=== PATIENT | female | born 1955 | race American Indian/Alaskan Native ===

== ENCOUNTER 2017-09-17 21:13 | Emergency (ER) | payer OTHER ==
--- NOTE | 2017-09-17 21:40 | EDM.PDOC ---
ED HPI GENERAL MEDICAL PROBLEM - General Chief Complaint: Lower Extremity Injury/Pain Stated Complaint: PT FELL AND HURT LT KNEE Time Seen by Provider: 09/17/17 21:40 Source of Information: Reports: Patient - History of Present Illness INITIAL COMMENTS - FREE TEXT/NARRATIVE: HISTORY AND PHYSICAL: History of present illness: [Patient with history of bilateral total knee replacement presents post fall, she slipped on the sidewalk down to her left knee complains of 10 out of 10 pain with ambulation unable to bear weight due to pain otherwise limits neurovascularly intact there's moderate swelling about the knee no open lesion or abrasion no bruising entirely neurovascularly intact ] Review of systems: As per history of present illness and below otherwise all systems reviewed and negative. Past medical history: As per history of present illness and as reviewed below otherwise noncontributory. Surgical history: As per history of present illness and as reviewed below otherwise noncontributory. Social history: No reported history of drug or alcohol abuse. Family history: As per history of present illness and as reviewed below otherwise noncontributory. Physical exam: HEENT: Atraumatic, normocephalic, pupils reactive, negative for conjunctival pallor or scleral icterus, mucous membranes moist, throat clear, neck supple, nontender, trachea midline. Lungs: Clear to auscultation, breath sounds equal bilaterally, chest nontender. Heart: S1S2, regular, negative for clicks, rubs, or JVD. Abdomen: Soft, nondistended, nontender. Negative for masses or hepatosplenomegaly. Negative for costovertebral tenderness. Pelvis: Stable nontender. Genitourinary: Deferred. Rectal: Deferred. Extremities: Atraumatic, negative for cords or calf pain. Neurovascular unremarkable. Neuro: Awake, alert, oriented. Cranial nerves II through XII unremarkable. Cerebellum unremarkable. Motor and sensory unremarkable throughout. Exam nonfocal. Left lower extremity hip and ankle and affected knee as per history of present illness Diagnostics: [2 views left knee ] Therapeutics: [Percocet Patient has tolerated this medication in the past #10 no refill Crutches as needed] Buster bandage Follow-up with orthop Impression: [Left knee pain/contusion History of total knee replacement Definitive disposition and diagnosis as appropriate pending reevaluation and review of above. left knee Pain Score (Numeric/FACES): 7 - Related Data Allergies Allergy/AdvReac Type Severity Reaction Status Date / Time aspirin Allergy Nausea Verified 06/26/16 18:55 codeine Allergy Hives Verified 09/08/15 10:36 ketorolac [From Toradol] Allergy Nausea Verified 06/26/16 18:55 morphine Allergy Difficulty Verified 09/17/17 21:36 Breathing Penicillins Allergy Hives Verified 09/17/17 21:36 Tricyclic Compounds Allergy Vomiting Verified 09/08/15 10:36 Home Meds: Home Meds Acetaminophen/HYDROcodone [[place] 325-5 MG] 1 tab PO Q6HR PRN 09/17/17 [History] LORazepam 1 tab PO BEDTIME PRN 09/17/17 [History] Lisinopril 1 tab PO DAILY 09/17/17 [History] Triamcinolone Acetonide [Nasacort AQ [place]] 55 mcg INH DAILY 09/17/17 [History] Past Medical History Cardiovascular History: Reports: Hypertension Endocrine/Metabolic History: Reports: Other (See Below) Other Endocrine/Metabolic History: "PREDIABETIC" - Infectious Disease History Infectious Disease History: Reports: Chicken Pox, Measles, Mumps - Past Surgical History Cardiovascular Surgical History: Reports: Other (See Below) Social & Family History - Family History Family Medical History: Noncontributory - Tobacco Use Smoking Status *Q: Never Smoker Second Hand Smoke Exposure: Yes - Caffeine Use Caffeine Use: Reports: Coffee - Recreational Drug Use Recreational Drug Use: No Review of Systems - Review of Systems Review Of Systems: ROS reveals no pertinent complaints other than HPI. ED EXAM, GENERAL - Physical Exam Exam: See Below Course - Vital Signs Last Recorded V/S: Last Vital Signs Temp 97.7 F 09/17/17 21:13 Pulse 83 09/17/17 21:13 Resp 18 09/17/17 21:13 BP 123/51 L 09/17/17 21:13 Pulse Ox 95 09/17/17 21:13 - Orders/Labs/Meds Orders: Active Orders 24 hr Category Date Time Status Knee 1V or 2V Lt [CR] Stat Exams 09/17/17 21:38 Taken Meds: Medications Discontinued Medications Generic Name Dose Route Start Last Admin Trade Name Freq PRN Reason Stop Dose Admin Oxycodone/Acetaminophen 1 tab 09/17/17 22:44 Percocet 325-5 Mg PO 09/17/17 22:45 ONETIME ONE Departure - Departure Time of Disposition: 22:54 Disposition: Home, Self-Care 01 Condition: Good Clinical Impression: Contusion, Left knee pain - Discharge Information Referrals: PCP,None [Primary Care Provider] - Forms: ED Department Discharge Additional Instructions: Medication as prescribed Return if symptoms persist or worsen Follow-up with orthopedist, call for an appointment for appropriate follow-up Crutches when necessary [facility] [address], [address] [place] [address] my orthopedic The following information is given to patients seen in the emergency department who are being discharged to home. This information is to outline your options for follow-up care. We provide all patients seen in our emergency department with a follow-up referral. The need for follow-up, as well as the timing and circumstances, are variable depending upon the specifics of your emergency department visit. If you don't have a primary care physician on staff, we will provide you with a referral. We always advise you to contact your personal physician following an emergency department visit to inform them of the circumstance of the visit and for follow-up with them and/or the need for any referrals to a consulting specialist. The emergency department will also refer you to a specialist when appropriate. This referral assures that you have the opportunity for follow-up care with a specialist. All of these measure are taken in an effort to provide you with optimal care, which includes your follow-up. Under all circumstances we always encourage you to contact your private physician who remains a resource for coordinating your care. When calling for follow-up care, please make the office aware that this follow-up is from your recent emergency room visit. If for any reason you are refused follow-up, please contact the [facility] emergency department at and asked to speak to the emergency department charge nurse. - My Orders Last 24 Hours: My Active Orders 09/17/17 21:38 Knee 1V or 2V Lt [CR] Stat - Assessment/Plan Last 24 Hours: My Active Orders 09/17/17 21:38 Knee 1V or 2V Lt [CR] Stat
[2017-09-17] MEDS ORDERED: Acetaminophen/oxyCODONE 325-5 MG Tab PO ONE (22:44)
[2017-09-17 23:09] VITALS: BP 132/69
--- NOTE | 2017-09-18 15:08 | CR ---
EXAM DATE: 09/17/17 PATIENT'S AGE: 62 Patient: GIRISH KENT Facility: [place], [place] Site . Site : 1955 Study: XRay Knee Left [id number] 10:22:35 PM Ordering Physician: Juan Garcia Final Report: Indication: Pain after fall Technique: Two views left knee Comparison: None Findings/impression: Status post left knee arthroplasty without evidence for hardware complication, fracture, or subluxation. Soft tissues are intact. Dictated by Marianne Martinez MD @ Sep 17 2017 10:49PM (Electronic Signature) Report Signed by Proxy. VALERIE
== END 2017-09-17 23:10 | disposition home or self-care (01) ==
LOC: MW.ED 21:13
DX: S80.02XA Contusion of left knee, initial encounter (principal); I10 Essential (primary) hypertension; Z96.653 Presence of artificial knee joint, bilateral; Z88.6 Allergy status to analgesic agent; Z88.5 Allergy status to narcotic agent; Z88.0 Allergy status to penicillin; Z88.8 Allergy status to other drugs, medicaments and biological substances; W01.0XXA Fall on same level from slipping, tripping and stumbling without subsequent striking against object, initial encounter
CPT/HCPCS: 73560; 99283; A9270

== ENCOUNTER 2018-11-01 05:49 | Emergency (ER) | payer SELFPAY ==
--- NOTE | 2018-11-01 05:52 | EDM.PDOC ---
ED HPI GENERAL MEDICAL PROBLEM - General Stated Complaint: VOMITTING AND ABSCESS TOOTH Time Seen by Provider: 11/01/18 05:52 Source of Information: Reports: Patient - History of Present Illness INITIAL COMMENTS - FREE TEXT/NARRATIVE: HISTORY AND PHYSICAL: History of present illness: [Patient presents with history of dental abscess on Cleocin and Flagyl She's had some nausea and vomiting since midnight nontoxic appearing in no distress no active vomiting at current no current fever chills sweats no chest pain shortness breath headache dizziness palpitation about a urine symptoms ] Review of systems: As per history of present illness and below otherwise all systems reviewed and negative. Past medical history: As per history of present illness and as reviewed below otherwise noncontributory. Surgical history: As per history of present illness and as reviewed below otherwise noncontributory. Social history: No reported history of drug or alcohol abuse. Family history: As per history of present illness and as reviewed below otherwise noncontributory. Physical exam: HEENT: Atraumatic, normocephalic, pupils reactive, negative for conjunctival pallor or scleral icterus, mucous membranes moist, throat clear, neck supple, nontender, trachea midline. Lungs: Clear to auscultation, breath sounds equal bilaterally, chest nontender. Heart: S1S2, regular, negative for clicks, rubs, or JVD. Abdomen: Soft, nondistended, nontender. Negative for masses or hepatosplenomegaly. Negative for costovertebral tenderness. Pelvis: Stable nontender. Genitourinary: Deferred. Rectal: Deferred. Extremities: Atraumatic, negative for cords or calf pain. Neurovascular unremarkable. Neuro: Awake, alert, oriented. Cranial nerves II through XII unremarkable. Cerebellum unremarkable. Motor and sensory unremarkable throughout. Exam nonfocal. Diagnostics: [CBC CMP UA blood cultures ] Therapeutics: [Nucleus and Stop Flagyl ] Impression: [Nausea vomiting/stomach upset Medication side effect due to Flagyl ] Definitive disposition and diagnosis as appropriate pending reevaluation and review of above. - Related Data Allergies Allergy/AdvReac Type Severity Reaction Status Date / Time aspirin Allergy Nausea Verified 11/01/18 06:16 codeine Allergy Hives Verified 11/01/18 06:16 ketorolac [From Toradol] Allergy Nausea Verified 11/01/18 06:16 morphine Allergy Difficulty Verified 11/01/18 06:16 Breathing Penicillins Allergy Hives Verified 11/01/18 06:16 Tricyclic Compounds Allergy Vomiting Verified 11/01/18 06:16 Home Meds: Home Meds Acetaminophen/HYDROcodone [[place] 325-5 MG] 1 tab PO Q6HR PRN 09/17/17 [History] LORazepam 1 tab PO BEDTIME PRN 09/17/17 [History] Lisinopril 1 tab PO DAILY 09/17/17 [History] Triamcinolone Acetonide [Nasacort AQ [place]] 55 mcg INH DAILY 09/17/17 [History] Clindamycin HCl 150 mg PO 11/01/18 [History] metroNIDAZOLE [Metronidazole] 500 mg PO 11/01/18 [History] Past Medical History HEENT History: Reports: Impaired Vision Cardiovascular History: Reports: Hypertension [employer] History: Reports: Psychiatric History: Reports: Anxiety Endocrine/Metabolic History: Reports: Other (See Below) Other Endocrine/Metabolic History: "PREDIABETIC" - Infectious Disease History Infectious Disease History: Reports: Chicken Pox, Measles, Mumps - Past Surgical History Cardiovascular Surgical History: Reports: Other (See Below) Social & Family History - Family History Family Medical History: Noncontributory - Caffeine Use Caffeine Use: Reports: Coffee ED ROS GENERAL - Review of Systems Review Of Systems: See Below ED EXAM, GENERAL - Physical Exam Exam: See Below Course - Vital Signs Last Recorded V/S: Last Vital Signs Temp 97 F 11/01/18 06:18 Pulse 112 H 11/01/18 06:18 Resp 20 11/01/18 06:18 BP 139/70 11/01/18 06:18 Pulse Ox 97 11/01/18 06:18 - Orders/Labs/Meds Orders: Active Orders 24 hr Category Date Time Status CBC WITH AUTO DIFF [HEME] Stat Lab 11/01/18 06:22 Ordered COMPREHENSIVE METABOLIC PN,CMP [CHEM] Stat Lab 11/01/18 06:23 Ordered CULTURE BLOOD [BC] Stat Lab 11/01/18 06:23 Ordered CULTURE BLOOD [BC] Stat Lab 11/01/18 06:23 Ordered UA RFX VI[place]IANO AND CULT IF INDIC [URIN] Stat Lab 11/01/18 06:23 Ordered Sodium Chloride 0.9% [Normal Saline] 1,000 ml Med 11/01/18 06:23 Active IV STAT Blood Culture x2 Reflex Set [OM.PC] Stat Oth 11/01/18 06:23 Ordered Medication Orders Sodium Chloride (Normal Saline) 1,000 mls @ 999 mls/hr IV STAT ONE Stop: 11/01/18 07:23 Meds: Medications Generic Name Dose Route Start Last Admin Trade Name Freq PRN Reason Stop Dose Admin Sodium Chloride 1,000 mls @ 999 mls/hr 11/01/18 06:23 Normal Saline IV 11/01/18 07:23 STAT ONE Discontinued Medications Generic Name Dose Route Start Last Admin Trade Name Freq PRN Reason Stop Dose Admin Ondansetron HCl 8 mg 11/01/18 06:23 Zofran IVPUSH 11/01/18 06:24 ONETIME ONE Departure - Departure Time of Disposition: 06:25 Disposition: Home, Self-Care 01 Condition: Good Clinical Impression: Dental abscess, Nausea & vomiting, Medication side effect - Discharge Information Referrals: Vanessa Yoo MD [Primary Care Provider] - Additional Instructions: Follow-up with dentist as scheduled on Monday Stop Flagyl Continue clindamycin Zofran provided for nausea The following information is given to patients seen in the emergency department who are being discharged to home. This information is to outline your options for follow-up care. We provide all patients seen in our emergency department with a follow-up referral. The need for follow-up, as well as the timing and circumstances, are variable depending upon the specifics of your emergency department visit. If you don't have a primary care physician on staff, we will provide you with a referral. We always advise you to contact your personal physician following an emergency department visit to inform them of the circumstance of the visit and for follow-up with them and/or the need for any referrals to a consulting specialist. The emergency department will also refer you to a specialist when appropriate. This referral assures that you have the opportunity for follow-up care with a specialist. All of these measure are taken in an effort to provide you with optimal care, which includes your follow-up. Under all circumstances we always encourage you to contact your private physician who remains a resource for coordinating your care. When calling for follow-up care, please make the office aware that this follow-up is from your recent emergency room visit. If for any reason you are refused follow-up, please contact the [facility] emergency department at and asked to speak to the emergency department charge nurse. - My Orders Last 24 Hours: My Active Orders 11/01/18 06:22 CBC WITH AUTO DIFF [HEME] Stat 11/01/18 06:23 COMPREHENSIVE METABOLIC PN,CMP [CHEM] Stat CULTURE BLOOD [BC] Stat CULTURE BLOOD [BC] Stat UA RFX VICTORIANO AND CULT IF INDIC [URIN] Stat Sodium Chloride 0.9% [Normal Saline] 1,000 ml IV STAT Blood Culture x2 Reflex Set [OM.PC] Stat - Assessment/Plan Last 24 Hours: My Active Orders 11/01/18 06:22 CBC WITH AUTO DIFF [HEME] Stat 11/01/18 06:23 COMPREHENSIVE METABOLIC PN,CMP [CHEM] Stat CULTURE BLOOD [BC] Stat CULTURE BLOOD [BC] Stat UA RFX VICTORIANO AND CULT IF INDIC [URIN] Stat Sodium Chloride 0.9% [Normal Saline] 1,000 ml IV STAT Blood Culture x2 Reflex Set [OM.PC] Stat
[2018-11-01] MEDS ORDERED: Sodium Chloride 0.9% 1,000 ML IV ONE (06:23)
[2018-11-01] MEDS ORDERED: Ondansetron 4 MG/2 ML SDV IVPUSH ONE (06:23)
[2018-11-01 06:52] LABS: CHLORIDE,CL 100 mmol/L (98-107); SODIUM,NA 136 mmol/L (136-145)
[2018-11-01] MEDS ORDERED: Ketorolac 30 MG/ML SDV IVPUSH ONE (07:33)
[2018-11-01 08:10] VITALS: BP 156/65
== END 2018-11-01 08:02 | disposition home or self-care (01) ==
LOC: MW.ED 05:49
DX: R11.2 Nausea with vomiting, unspecified (principal); T37.3X5A Adverse effect of other antiprotozoal drugs, initial encounter; K04.7 Periapical abscess without sinus; I10 Essential (primary) hypertension; Z88.0 Allergy status to penicillin; Z88.5 Allergy status to narcotic agent; Z88.6 Allergy status to analgesic agent; Z79.899 Other long term (current) drug therapy
CPT/HCPCS: 80053; 85025; 87040; 96361; 96374; 96375; 99284; J1885; J2405; J7040

== ENCOUNTER 2019-10-16 13:07 | Emergency (ER) | payer MEDICARE, OTHER ==
[2019-10-16] MEDS ORDERED: Sodium Chloride 0.9% 2.5 ML Syringe FLUSH PRN ×2 (13:22)
[2019-10-16] MEDS ORDERED: Sodium Chloride 0.9% 10 ML Syringe FLUSH PRN (13:22)
[2019-10-16] MEDS ORDERED: Famotidine 20 MG/2 ML SDV IVPUSH ONE (13:22)
--- NOTE | 2019-10-16 13:31 | EDM.PDOC ---
ED HPI GENERAL MEDICAL PROBLEM - General Chief Complaint: Chest Pain Stated Complaint: CHEST PAIN/SOB Time Seen by Provider: 10/16/19 13:15 - History of Present Illness INITIAL COMMENTS - FREE TEXT/NARRATIVE: History of present illness: [Presents after 4 episodes of sharp chest pain that was episodic lasted seconds took her breath away caused her to stop moving and then resolve spontaneously completely. The pain was in the right side of her chest serially no cough fever congestion runny nose or sore throat she has not had leg pain or leg swelling she has no prior history of heart disease however she does have diabetes and hypertension. Currently pain-free and in no distress seems to make it better or worse or bring on the pain] Review of systems: As per history of present illness and below otherwise all systems reviewed and negative. Past medical history: As per history of present illness and as reviewed below otherwise noncontributory. Surgical history: As per history of present illness and as reviewed below otherwise noncontributory. Social history: No reported history of drug or alcohol abuse. Family history: As per history of present illness and as reviewed below otherwise noncontributory. Physical exam: HEENT: Atraumatic, normocephalic, pupils reactive, negative for conjunctival pallor or scleral icterus, mucous membranes moist, throat clear, neck supple, nontender, trachea midline. Lungs: Clear to auscultation, breath sounds equal bilaterally, chest nontender. Heart: S1S2, regular, negative for clicks, rubs, or JVD. Abdomen: Soft, nondistended, nontender. Negative for masses or hepatosplenomegaly. Negative for costovertebral tenderness. Pelvis: Stable nontender. Genitourinary: Deferred. Rectal: Deferred. Extremities: Atraumatic, negative for cords or calf pain. Neurovascular unremarkable. Neuro: Awake, alert, oriented. Cranial nerves II through XII unremarkable. Cerebellum unremarkable. Motor and sensory unremarkable throughout. Exam nonfocal. Diagnostics: [] Therapeutics: [] Impression: Sharp chest pain [] Plan: EEG and chest x-ray will be obtained as well as lab studies patient will be reassessed. His pain pattern is not likely to be cardiac as it is right- sided and sharp. She has no other signs or symptoms of pulmonary embolus no leg pain no leg swelling no calf tenderness no tachycardia no hypoxia or I do not believe this is a pulmonary embolus. [] Definitive disposition and diagnosis as appropriate pending reevaluation and review of above. right chest Pain Score (Numeric/FACES): 3 - Related Data Allergies Allergy/AdvReac Type Severity Reaction Status Date / Time aspirin Allergy Nausea Verified 10/16/19 13:15 codeine Allergy Hives Verified 10/16/19 13:15 ketorolac [From Toradol] Allergy Nausea Verified 10/16/19 13:15 morphine Allergy Difficulty Verified 10/16/19 13:15 Breathing Penicillins Allergy Hives Verified 10/16/19 13:15 Tricyclic Compounds Allergy Vomiting Verified 10/16/19 13:15 Home Meds: Home Meds Acetaminophen/oxyCODONE [Percocet 325-5 MG] 1 tab PO Q4H PRN 10/16/19 [History] Omeprazole 1 tab PO DAILY 10/16/19 [History] Oxycodone Myristate [Xtampza ER] 1 cap PO BID PRN 10/16/19 [History] Telmisartan 1 tab PO DAILY 10/16/19 [History] metFORMIN HCl [Metformin HCl] 500 mg PO DAILY 10/16/19 [History] Past Medical History HEENT History: Reports: Impaired Vision Cardiovascular History: Reports: 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 right wrist Social & Family History - Family History Family Medical History: Noncontributory - Tobacco Use Smoking Status *Q: Never Smoker - Caffeine Use Caffeine Use: Reports: Coffee - Recreational Drug Use Recreational Drug Use: No ED ROS GENERAL - Review of Systems Review Of Systems: See Below ED EXAM, GENERAL - Physical Exam Exam: See Below EKG INTERPRETATION EKG Interpretation Comments: EKG is rate of 82 normal sinus rhythm no ischemic changes normal EKG read and interpreted by me Course - Vital Signs Text/Narrative:: Remained pain-free throughout her emergency department visit. One-view portable chest read interpreted by me no acute cardiopulmonary pathology is evident She was reassessed at 3 PM she is pain-free should be discharged home follow-up with primary care return to the ED for crushing chest pain or other concerns. Last Recorded V/S: Last Vital Signs Temp 36.2 C 10/16/19 13:13 Pulse 89 10/16/19 13:13 Resp 20 10/16/19 13:13 BP 137/57 L 10/16/19 13:13 Pulse Ox 92 L 10/16/19 13:13 - Orders/Labs/Meds Orders: Active Orders 24 hr Category Date Time Status Cardiac Monitoring [RC] . DIRECTED Care 10/16/19 13:22 Active EKG 12 Lead [EKG Documentation Completion] [RC] STAT Care 10/16/19 13:25 Active Pulse Oximetry [RC] ASDIRECTED Care 10/16/19 13:22 Active Sodium Chloride 0.9% [Saline Flush] Med 10/16/19 13:22 Active 10 ml FLUSH ASDIRECTED PRN Sodium Chloride 0.9% [Saline Flush] Med 10/16/19 13:22 Active 2.5 ml FLUSH ASDIRECTED PRN Sodium Chloride 0.9% [Saline Flush] Med 10/16/19 13:22 Active 2.5 ml FLUSH ASDIRECTED PRN Saline Lock Insert [OM.PC] Stat Oth 10/16/19 13:22 Ordered Medication Orders Sodium Chloride (Saline Flush) 2.5 ml FLUSH ASDIRECTED PRN PRN Reason: Keep Vein Open Sodium Chloride (Saline Flush) 10 ml FLUSH ASDIRECTED PRN PRN Reason: Keep Vein Open Sodium Chloride (Saline Flush) 2.5 ml FLUSH ASDIRECTED PRN PRN Reason: Keep Vein Open Labs: Laboratory Tests 10/16/19 10/16/19 Range/Units 13:18 13:18 WBC 6.74 (4.0-11.0) K/uL RBC 5.29 (4.30-5.90) M/uL Hgb 13.4 (12.0-16.0) g/dL Hct 42.3 (36.0-46.0) % MCV 80.0 (80.0-98.0) fL MCH 25.3 L (27.0-32.0) pg MCHC 31.7 (31.0-37.0) g/dL RDW Std Deviation 46.7 (28.0-62.0) fl RDW Coeff of Bobby 16 H (11.0-15.0) % Plt Count 240 (150-400) K/uL MPV 9.70 (7.40-12.00) fL Neut % (Auto) 56.0 (48.0-80.0) % Lymph % (Auto) 36.2 (16.0-40.0) % [place] % (Auto) 5.9 (0.0-15.0) % Eos % (Auto) 1.6 (0.0-7.0) % Baso % (Auto) 0.3 (0.0-1.5) % Neut # (Auto) 3.8 (1.4-5.7) K/uL Lymph # (Auto) 2.4 (0.6-2.4) K/uL [place] # (Auto) 0.4 (0.0-0.8) K/uL Eos # (Auto) 0.1 (0.0-0.7) K/uL Baso # (Auto) 0.0 (0.0-0.1) K/uL Nucleated RBC % 0.0 /100WBC Nucleated RBCs # 0 K/uL Sodium 136 (136-145) mmol/L Potassium 3.9 (3.5-5.1) mmol/L Chloride 102 (98-107) mmol/L Carbon Dioxide 25.8 (21.0-32.0) mmol/L BUN 13 (7.0-18.0) mg/dL Creatinine 0.7 (0.6-1.0) mg/dL Est Cr Clr Drug Dosing 72.10 mL/min Estimated GFR (MDRD) > 60.0 ml/min Glucose 192 H (74-106) mg/dL Calcium 9.0 (8.5-10.1) mg/dL Total Bilirubin 0.4 (0.2-1.0) mg/dL AST 13 L (15-37) IU/L ALT 20 (14-63) IU/L Alkaline Phosphatase 102 (46-116) U/L Troponin I < 0.050 (0.000-0.056) ng/mL Total Protein 7.9 (6.4-8.2) g/dL Albumin 3.8 (3.4-5.0) g/dL Globulin 4.1 H (2.6-4.0) g/dL Albumin/Globulin Ratio 0.9 (0.9-1.6) Meds: Medications Generic Name Dose Route Start Last Admin Trade Name Freq PRN Reason Stop Dose Admin Sodium Chloride 2.5 ml 10/16/19 13:22 Saline Flush FLUSH ASDIRECTED PRN Keep Vein Open Sodium Chloride 10 ml 10/16/19 13:22 Saline Flush FLUSH ASDIRECTED PRN Keep Vein Open Sodium Chloride 2.5 ml 10/16/19 13:22 Saline Flush FLUSH ASDIRECTED PRN Keep Vein Open Discontinued Medications Generic Name Dose Route Start Last Admin Trade Name Freq PRN Reason Stop Dose Admin Famotidine 20 mg 10/16/19 13:22 10/16/19 13:43 Pepcid IVPUSH 10/16/19 13:23 20 mg ONETIME ONE Administration Departure - Departure Time of Disposition: 15:01 Disposition: Home, Self-Care 01 Condition: Good Clinical Impression: Chest pain Qualifiers: Chest pain type: chest pain on breathing Qualified Code(s): R07.1 - Chest pain on breathing; R07.81 - Pleurodynia - Discharge Information *PRESCRIPTION DRUG MONITORING PROGRAM REVIEWED*: Not Applicable *COPY OF PRESCRIPTION DRUG MONITORING REPORT IN PATIENT MIKE: Not Applicable Instructions: Nonspecific Chest Pain, Adult Referrals: PCP,Unobtain [Primary Care Provider] - Forms: ED Department Discharge Additional Instructions: The following information is given to patients seen in the emergency department who are being discharged to home. This information is to outline your options for follow-up care. We provide all patients seen in our emergency department with a follow-up referral. The need for follow-up, as well as the timing and circumstances, are variable depending upon the specifics of your emergency department visit. If you don't have a primary care physician on staff, we will provide you with a referral. We always advise you to contact your personal physician following an emergency department visit to inform them of the circumstance of the visit and for follow-up with them and/or the need for any referrals to a consulting specialist. The emergency department will also refer you to a specialist when appropriate. This referral assures that you have the opportunity for follow-up care with a specialist. All of these measure are taken in an effort to provide you with optimal care, which includes your follow-up. Under all circumstances we always encourage you to contact your private physician who remains a resource for coordinating your care. When calling for follow-up care, please make the office aware that this follow-up is from your recent emergency room visit. If for any reason you are refused follow-up, please contact the [facility] Emergency Department at and asked to speak to the emergency department charge nurse. Sepsis Event Note - Evaluation Sepsis Screening Result: No Definite Risk - Focused Exam Vital Signs: Vital Signs Temp Pulse Resp BP Pulse Ox 10/16/19 13:13 36.2 C 89 20 137/57 L 92 L Date Exam was Performed: 10/16/19 Time Exam was Performed: 14:59 - My Orders Last 24 Hours: My Active Orders 10/16/19 13:22 Cardiac Monitoring [RC] . DIRECTED Pulse Oximetry [RC] ASDIRECTED Sodium Chloride 0.9% [Saline Flush] 10 ml FLUSH ASDIRECTED PRN Sodium Chloride 0.9% [Saline Flush] 2.5 ml FLUSH ASDIRECTED PRN Sodium Chloride 0.9% [Saline Flush] 2.5 ml FLUSH ASDIRECTED PRN Saline Lock Insert [OM.PC] Stat 10/16/19 13:25 EKG 12 Lead [EKG Documentation Completion] [RC] STAT - Assessment/Plan Last 24 Hours: My Active Orders 10/16/19 13:22 Cardiac Monitoring [RC] . DIRECTED Pulse Oximetry [RC] ASDIRECTED Sodium Chloride 0.9% [Saline Flush] 10 ml FLUSH ASDIRECTED PRN Sodium Chloride 0.9% [Saline Flush] 2.5 ml FLUSH ASDIRECTED PRN Sodium Chloride 0.9% [Saline Flush] 2.5 ml FLUSH ASDIRECTED PRN Saline Lock Insert [OM.PC] Stat 10/16/19 13:25 EKG 12 Lead [EKG Documentation Completion] [RC] STAT
[2019-10-16 13:55] LABS: BLOOD UREA NITROGEN,BUN 13 mg/dL (7.0-18.0); CARBON DIOXIDE,CO2 25.8 mmol/L (21.0-32.0); CHLORIDE,CL 102 mmol/L (98-107); GLUCOSE RANDOM 192 mg/dL (74-106); POTASSIUM,K 3.9 mmol/L (3.5-5.1); SODIUM,NA 136 mmol/L (136-145)
--- NOTE | 2019-10-16 14:38 | CR ---
Chest: Portable view of the chest was obtained. Comparison: Previous chest x-ray on 03/26/15. Heart is felt to be slightly enlarged. Pulmonary vessels may be minimally congested. Lungs otherwise are clear. Bony structures are grossly intact. Impression: 1. Possible mild CHF. Diagnostic code #3 This report was dictated in MDT
[2019-10-16 15:13] VITALS: BP 136/64; PULSE 80
== END 2019-10-16 15:14 | disposition home or self-care (01) ==
LOC: MW.ED 13:07
DX: R07.1 Chest pain on breathing (principal); I10 Essential (primary) hypertension; E11.9 Type 2 diabetes mellitus without complications; Z79.84 Long term (current) use of oral hypoglycemic drugs; Z88.6 Allergy status to analgesic agent; Z88.5 Allergy status to narcotic agent; Z88.8 Allergy status to other drugs, medicaments and biological substances; Z88.0 Allergy status to penicillin
CPT/HCPCS: 36415; 71045; 80053; 84484; 85025; 93005; 96374; 99285; J3490; 99283

== ENCOUNTER 2020-04-17 15:10 | Emergency (ER) | payer MEDICARE, OTHER ==
[2020-04-17] MEDS ORDERED: Ondansetron 4 MG/2 ML SDV IVPUSH ONE (15:17)
[2020-04-17] MEDS ORDERED: Sodium Chloride 0.9% 2.5 ML Syringe FLUSH PRN (15:17)
[2020-04-17] MEDS ORDERED: Sodium Chloride 0.9% 10 ML Syringe FLUSH PRN (15:17)
[2020-04-17] MEDS ORDERED: Famotidine 20 MG/2 ML SDV IVPUSH ONE (15:17)
[2020-04-17] MEDS ORDERED: Sodium Chloride 0.9% 1,000 ML IV ONE (15:17)
--- NOTE | 2020-04-17 15:22 | EDM.PDOC ---
ED HPI GENERAL MEDICAL PROBLEM - General Chief Complaint: Respiratory Problem Stated Complaint: SHORTNESS OF BREATH Time Seen by Provider: 04/17/20 15:13 Source of Information: Reports: Patient, EMS History Limitations: Reports: No Limitations - History of Present Illness INITIAL COMMENTS - FREE TEXT/NARRATIVE: History of present illness: [Patient is 64-year-old female with recent diagnosis being positive for Covid who presents to the ER with typical Covid-like symptoms including intermittent body aches, cough, intermittent headache, nausea, intermittent diarrhea. She been taking Tylenol at home to help with some of her symptoms. She states that she just felt kind of lousy and crummy this morning so decided to call EMS to come bring her in. She found out today that she was positive. Symptoms have been present now for about a week. She is prediabetic, has hypertension, and history of asthma.] Review of systems: As per history of present illness and below otherwise all systems reviewed and negative. Past medical history: As per history of present illness and as reviewed below otherwise noncontributory. Surgical history: As per history of present illness and as reviewed below otherwise noncontributory. Social history: No reported history of drug or alcohol abuse. Family history: As per history of present illness and as reviewed below otherwise no ncontributory. Physical exam: General: Awake, alert, no acute distress, A&O X3. HEENT: Atraumatic, normocephalic, pupils reactive, negative for conjunctival pallor or scleral icterus, mucous membranes moist, throat clear, neck supple, nontender, trachea midline. Lungs: Clear to auscultation, breath sounds equal bilaterally, chest nontender. Heart: RRR, normal S1S2, no JVD. Abdomen: Soft, nondistended, nontender. Negative for masses or hepatosplenomegaly. Negative for costovertebral tenderness. Pelvis: Stable nontender. Genitourinary: Deferred. Rectal: Deferred. Extremities: Atraumatic, no edema, Neurovascular unremarkable. Neuro: Motor and sensory grossly intact throughout. Exam nonfocal. Diagnostics: [] Therapeutics: [] Impression: [] Plan: [] Definitive disposition and diagnosis as appropriate pending reevaluation and review of above. - Related Data Allergies Allergy/AdvReac Type Severity Reaction Status Date / Time aspirin Allergy Nausea Verified 04/17/20 15:12 codeine Allergy Hives Verified 04/17/20 15:12 ketorolac [From Toradol] Allergy Nausea Verified 04/17/20 15:12 morphine Allergy Difficulty Verified 04/17/20 15:12 Breathing Penicillins Allergy Hives Verified 04/17/20 15:12 Tricyclic Compounds Allergy Vomiting Verified 04/17/20 15:12 Home Meds: Home Meds Acetaminophen/oxyCODONE [Percocet 325-5 MG] 1 tab PO Q4H PRN 10/16/19 [History] Omeprazole 1 tab PO DAILY 10/16/19 [History] Oxycodone Myristate [Xtampza ER] 1 cap PO BID PRN 10/16/19 [History] Telmisartan 1 tab PO DAILY 10/16/19 [History] Albuterol Sulfate [Albuterol Sulfate Hfa] 1 dose INH ASDIRECTED 04/17/20 [History] Past Medical History HEENT History: Reports: Impaired Vision 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 right wrist Social & Family History - Family History Family Medical History: Noncontributory - Caffeine Use Caffeine Use: Reports: Coffee ED ROS GENERAL - Review of Systems Review Of Systems: Comprehensive ROS is negative, except as noted in HPI. ED EXAM, GENERAL - Physical Exam Exam: See Below (see h and p) #1 Interpretation EKG Date: 04/17/20 Time: 15:38 Rhythm: NSR Rate (Beats/Min): 85 [place]: Normal P-Wave: Present QRS: Normal ST-T: Normal QT: Normal Course - Vital Signs Text/Narrative:: On reevaluation, patient is feeling better after eating some fluids and medications. She is not hypoxic, not tachypneic, stable vital signs, well- appearing, no respiratory distress. I feel she is appropriate for continued outpatient management with symptomatic care at home. Return precautions provided. Patient is agreeable with the plan and otherwise stable and well- appearing at discharge. Last Recorded V/S: Last Vital Signs Temp 36.2 C 04/17/20 15:16 Pulse 85 04/17/20 15:16 Resp 20 04/17/20 15:16 BP 111/57 L 04/17/20 15:16 Pulse Ox 94 L 04/17/20 15:16 - Orders/Labs/Meds Orders: Active Orders 24 hr Category Date Time Status EKG Documentation Completion [RC] STAT Care 04/17/20 15:19 Active Sodium Chloride 0.9% [Saline Flush] Med 04/17/20 15:17 Active 10 ml FLUSH ASDIRECTED PRN Sodium Chloride 0.9% [Saline Flush] Med 04/17/20 15:17 Active 2.5 ml FLUSH ASDIRECTED PRN Saline Lock Insert [OM.PC] Stat Oth 04/17/20 15:19 Ordered Medication Orders Sodium Chloride (Saline Flush) 10 ml FLUSH ASDIRECTED PRN PRN Reason: Keep Vein Open Last Admin: 04/17/20 16:00 Dose: 10 ml Documented by: NATASHA Sodium Chloride (Saline Flush) 2.5 ml FLUSH ASDIRECTED PRN PRN Reason: Keep Vein Open Last Admin: 04/17/20 16:00 Dose: 2.5 ml Documented by: NATASHA Labs: Laboratory Tests 04/17/20 04/17/20 Range/Units 15:47 15:47 WBC 4.75 (4.0-11.0) K/uL RBC 5.06 (4.30-5.90) M/uL Hgb 12.7 (12.0-16.0) g/dL Hct 40.3 (36.0-46.0) % MCV 79.6 L (80.0-98.0) fL MCH 25.1 L (27.0-32.0) pg MCHC 31.5 (31.0-37.0) g/dL RDW Std Deviation 46.5 (28.0-62.0) fl RDW Coeff of Bobby 16 H (11.0-15.0) % Plt Count 187 (150-400) K/uL MPV 9.60 (7.40-12.00) fL Neut % (Auto) 42.1 L (48.0-80.0) % Lymph % (Auto) 49.3 H (16.0-40.0) % [place] % (Auto) 8.2 (0.0-15.0) % Eos % (Auto) 0.2 (0.0-7.0) % Baso % (Auto) 0.2 (0.0-1.5) % Neut # (Auto) 2.0 (1.4-5.7) K/uL Lymph # (Auto) 2.3 (0.6-2.4) K/uL [place] # (Auto) 0.4 (0.0-0.8) K/uL Eos # (Auto) 0.0 (0.0-0.7) K/uL Baso # (Auto) 0.0 (0.0-0.1) K/uL Nucleated RBC % 0.0 /100WBC Nucleated RBCs # 0 K/uL Sodium 137 (136-145) mmol/L Potassium 3.5 (3.5-5.1) mmol/L Chloride 102 (98-107) mmol/L Carbon Dioxide 27.2 (21.0-32.0) mmol/L BUN 8 (7.0-18.0) mg/dL Creatinine 0.8 (0.6-1.0) mg/dL Est Cr Clr Drug Dosing 63.09 mL/min Estimated GFR (MDRD) > 60.0 ml/min Glucose 133 H (74-106) mg/dL Calcium 8.7 (8.5-10.1) mg/dL Total Bilirubin 0.4 (0.2-1.0) mg/dL AST 31 (15-37) IU/L ALT 33 (14-63) IU/L Alkaline Phosphatase 94 (46-116) U/L Troponin I < 0.050 (0.000-0.056) ng/mL Total Protein 7.8 (6.4-8.2) g/dL Albumin 3.7 (3.4-5.0) g/dL Globulin 4.1 H (2.6-4.0) g/dL Albumin/Globulin Ratio 0.9 (0.9-1.6) Meds: Medications Generic Name Dose Route Start Last Admin Trade Name Freq PRN Reason Stop Dose Admin Sodium Chloride 10 ml 04/17/20 15:17 04/17/20 16:00 Saline Flush FLUSH 10 ml ASDIRECTED PRN Administration Keep Vein Open Sodium Chloride 2.5 ml 04/17/20 15:17 04/17/20 16:00 Saline Flush FLUSH 2.5 ml ASDIRECTED PRN Administration Keep Vein Open Discontinued Medications Generic Name Dose Route Start Last Admin Trade Name Freq PRN Reason Stop Dose Admin Famotidine 20 mg 04/17/20 15:17 04/17/20 16:00 Pepcid IVPUSH 04/17/20 15:18 20 mg ONETIME ONE Administration Sodium Chloride 1,000 mls @ 999 mls/hr 04/17/20 15:17 04/17/20 16:00 Normal Saline IV 04/17/20 16:17 999 mls/hr .Bolus ONE Administration Ondansetron HCl 4 mg 04/17/20 15:17 04/17/20 16:00 Zofran IVPUSH 04/17/20 15:18 4 mg ONETIME ONE Administration Departure - Departure Time of Disposition: 16:49 Disposition: Home, Self-Care 01 Condition: Good Clinical Impression: COVID-19, Shortness of breath - Discharge Information Instructions: COVID-19 Frequently Asked Questions Forms: ED Department Discharge Additional Instructions: Follow-up with primary care doctor. Take all medications as previously prescribed. Return to the ER with any new or worsening symptoms. The following information is given to patients seen in the emergency department who are being discharged to home. This information is to outline your options for follow-up care. We provide all patients seen in our emergency department with a follow-up referral. The need for follow-up, as well as the timing and circumstances, are variable depending upon the specifics of your emergency department visit. If you don't have a primary care physician on staff, we will provide you with a referral. We always advise you to contact your personal physician following an emergency department visit to inform them of the circumstance of the visit and for follow-up with them and/or the need for any referrals to a consulting specialist. The emergency department will also refer you to a specialist when appropriate. This referral assures that you have the opportunity for follow-up care with a specialist. All of these measure are taken in an effort to provide you with optimal care, which includes your follow-up. Under all circumstances we always encourage you to contact your private physician who remains a resource for coordinating your care. When calling for follow-up care, please make the office aware that this follow-up is from your recent emergency room visit. If for any reason you are refused follow-up, please contact the [facility] Emergency Department at and asked to speak to the emergency department charge nurse. Sepsis Event Note (ED) - Evaluation Sepsis Screening Result: No Definite Risk - Focused Exam Vital Signs: Vital Signs Temp Pulse Resp BP Pulse Ox 04/17/20 15:16 36.2 C 85 20 111/57 L 94 L - My Orders Last 24 Hours: My Active Orders 04/17/20 15:17 Sodium Chloride 0.9% [Saline Flush] 10 ml FLUSH ASDIRECTED PRN Sodium Chloride 0.9% [Saline Flush] 2.5 ml FLUSH ASDIRECTED PRN 04/17/20 15:19 EKG Documentation Completion [RC] STAT Saline Lock Insert [OM.PC] Stat - Assessment/Plan Last 24 Hours: My Active Orders 04/17/20 15:17 Sodium Chloride 0.9% [Saline Flush] 10 ml FLUSH ASDIRECTED PRN Sodium Chloride 0.9% [Saline Flush] 2.5 ml FLUSH ASDIRECTED PRN 04/17/20 15:19 EKG Documentation Completion [RC] STAT Saline Lock Insert [OM.PC] Stat
[2020-04-17 16:17] LABS: BLOOD UREA NITROGEN,BUN 8 mg/dL (7.0-18.0); CARBON DIOXIDE,CO2 27.2 mmol/L (21.0-32.0); CHLORIDE,CL 102 mmol/L (98-107); GLUCOSE RANDOM 133 mg/dL (74-106); POTASSIUM,K 3.5 mmol/L (3.5-5.1); SODIUM,NA 137 mmol/L (136-145)
--- NOTE | 2020-04-17 16:38 | CR ---
INDICATION: Dyspnea TECHNIQUE: Chest 1 views COMPARISON: October 16, 2019 FINDINGS: Cardiovascular and mediastinum: Heart size and vasculature are normal in caliber and appearance. Lungs and pleural spaces: Lungs are clear. No sign of infiltrate or mass. No sign of pleural effusion. No pneumothorax. Bones and soft tissues: No significant findings. IMPRESSION: Unremarkable chest. No finding to explain dyspnea. Dictated by Mayur Hart MD @ Apr 17 2020 4:35PM Signed by Dr. Mayur Hart @ Apr 17 2020 4:36PM
[2020-04-17 17:08] VITALS: BP 120/83; PULSE 68
== END 2020-04-17 17:00 | disposition home or self-care (01) ==
LOC: MW.ED 15:10
DX: U07.1 COVID-19 (principal); I10 Essential (primary) hypertension; E11.9 Type 2 diabetes mellitus without complications; Z88.6 Allergy status to analgesic agent; Z88.5 Allergy status to narcotic agent; Z88.0 Allergy status to penicillin; Z88.8 Allergy status to other drugs, medicaments and biological substances; Z79.899 Other long term (current) drug therapy
CPT/HCPCS: 36415; 71045; 80053; 84484; 85025; 93005; 96374; 96375; 99285; J2405; J3490; J7030; 93010; 99283

== ENCOUNTER 2020-04-21 20:28 | Emergency (ER) | payer MEDICARE ==
[2020-04-21] MEDS ORDERED: Sodium Chloride 0.9% 1,000 ML IV ONE (20:51)
--- NOTE | 2020-04-21 20:57 | EDM.PDOC ---
ED HPI GENERAL MEDICAL PROBLEM - General Chief Complaint: Respiratory Problem Stated Complaint: COVID POSITIVE Time Seen by Provider: 04/21/20 20:39 Source of Information: Reports: Patient History Limitations: Reports: No Limitations - History of Present Illness INITIAL COMMENTS - FREE TEXT/NARRATIVE: Patient is a 64-year-old female who recently tested positive for Covid. Patient today presents for right-sided abd pain nausea vomiting. Patient states she has not been able to tolerate p.o. and is also have watery diarrhea. Patient denies any shortness of breath. Patient also reports some fevers and body aches. - Related Data Allergies Allergy/AdvReac Type Severity Reaction Status Date / Time aspirin Allergy Nausea Verified 04/21/20 20:41 codeine Allergy Hives Verified 04/21/20 20:41 ketorolac [From Toradol] Allergy Nausea Verified 04/21/20 20:41 morphine Allergy Difficulty Verified 04/21/20 20:41 Breathing Penicillins Allergy Hives Verified 04/21/20 20:41 Tricyclic Compounds Allergy Vomiting Verified 04/21/20 20:41 Home Meds: Home Meds Omeprazole 1 tab PO DAILY 10/16/19 [History] Telmisartan 1 tab PO DAILY 10/16/19 [History] Albuterol Sulfate [Albuterol Sulfate Hfa] 1 dose INH ASDIRECTED 04/17/20 [History] Past Medical History HEENT History: Reports: Impaired Vision Cardiovascular History: Reports: Hypertension Respiratory History: Reports: Asthma [employer] History: Reports: Psychiatric History: Reports: Anxiety Endocrine/Metabolic History: Reports: Diabetes, Type II, Other (See Below) Other Endocrine/Metabolic History: "PREDIABETIC" - Infectious Disease History Infectious Disease History: Reports: Chicken Pox, Measles, Mumps - Past Surgical History Cardiovascular Surgical History: Reports: Other (See Below) GI Surgical History: Reports: Appendectomy Musculoskeletal Surgical History: Reports: Arthroscopic Procedure, Other (See Below) Other Musculoskeletal Surgeries/Procedures:: Bilateral Knee 2015- Titanium implant. right wrist Social & Family History - Family History Family Medical History: No Pertinent Family History - Caffeine Use Caffeine Use: Reports: Coffee, Tea - Recreational Drug Use Recreational Drug Use: No ED ROS GENERAL - Review of Systems Review Of Systems: Comprehensive ROS is negative, except as noted in HPI. Constitutional: Reports: Fever, Chills Respiratory: Reports: No Symptoms GI/Abdominal: Reports: Abdominal Pain, Diarrhea, Nausea, Vomiting ED EXAM, GENERAL - Physical Exam Exam: See Below Exam Limited By: No Limitations General Appearance: Alert, No Apparent Distress Eye Exam: Bilateral Eye: EOMI Nose: Normal Inspection Head: Atraumatic Neck: Normal Inspection Respiratory/Chest: No Respiratory Distress, Lungs Clear, Normal Breath Sounds Cardiovascular: Regular Rate, Rhythm GI/Abdominal: Normal Bowel Sounds, Soft, Tender Neurological: Alert, Oriented, Normal Cognition Psychiatric: Normal Affect Course - Vital Signs Last Recorded V/S: Last Vital Signs Temp 98.0 F 04/21/20 20:41 Pulse 96 04/21/20 20:41 Resp 18 04/21/20 20:41 BP 119/48 L 04/21/20 20:41 Pulse Ox 93 L 04/21/20 20:41 - Orders/Labs/Meds Labs: Laboratory Tests 04/21/20 04/21/20 Range/Units 21:03 21:32 WBC 7.42 (4.0-11.0) K/uL RBC 5.11 (4.30-5.90) M/uL Hgb 13.1 (12.0-16.0) g/dL Hct 40.1 (36.0-46.0) % MCV 78.5 L (80.0-98.0) fL MCH 25.6 L (27.0-32.0) pg MCHC 32.7 (31.0-37.0) g/dL RDW Std Deviation 46.6 (28.0-62.0) fl RDW Coeff of Bobby 16 H (11.0-15.0) % Plt Count 227 (150-400) K/uL MPV 10.50 (7.40-12.00) fL Neut % (Auto) 71.1 (48.0-80.0) % Lymph % (Auto) 23.2 (16.0-40.0) % [place] % (Auto) 5.3 (0.0-15.0) % Eos % (Auto) 0.3 (0.0-7.0) % Baso % (Auto) 0.1 (0.0-1.5) % Neut # (Auto) 5.3 (1.4-5.7) K/uL Lymph # (Auto) 1.7 (0.6-2.4) K/uL [place] # (Auto) 0.4 (0.0-0.8) K/uL Eos # (Auto) 0.0 (0.0-0.7) K/uL Baso # (Auto) 0.0 (0.0-0.1) K/uL Nucleated RBC % 0.0 /100WBC Nucleated RBCs # 0 K/uL Sodium 137 (136-145) mmol/L Potassium 3.2 L (3.5-5.1) mmol/L Chloride 102 (98-107) mmol/L Carbon Dioxide 25.5 (21.0-32.0) mmol/L BUN 10 (7.0-18.0) mg/dL Creatinine 0.8 (0.6-1.0) mg/dL Est Cr Clr Drug Dosing 63.09 mL/min Estimated GFR (MDRD) > 60.0 ml/min Glucose 134 H (74-106) mg/dL Calcium 8.2 L (8.5-10.1) mg/dL Total Bilirubin 0.6 (0.2-1.0) mg/dL AST 25 (15-37) IU/L ALT 25 (14-63) IU/L Alkaline Phosphatase 75 (46-116) U/L Total Protein 7.7 (6.4-8.2) g/dL Albumin 3.3 L (3.4-5.0) g/dL Globulin 4.4 H (2.6-4.0) g/dL Albumin/Globulin Ratio 0.8 L (0.9-1.6) Lipase 102 (73-393) U/L Meds: Medications Discontinued Medications Generic Name Dose Route Start Last Admin Trade Name Freq PRN Reason Stop Dose Admin Sodium Chloride 1,000 mls @ 999 mls/hr 04/21/20 20:51 04/21/20 21:21 Normal Saline IV 04/21/20 21:51 999 mls/hr .BOLUS ONE Administration Iopamidol 100 ml 04/21/20 22:52 04/21/20 22:53 Isovue-370 (76%) IVPUSH 04/21/20 22:53 100 ml ONETIME STA Administration Metoclopramide HCl 10 mg 04/21/20 21:58 04/21/20 23:10 Reglan IVPUSH 04/21/20 21:59 10 mg ONETIME ONE Administration Ondansetron HCl 4 mg 04/21/20 20:59 04/21/20 21:21 Zofran IVPUSH 04/21/20 21:00 4 mg ONETIME ONE Administration Departure - Departure Time of Disposition: 23:57 Disposition: Home, Self-Care 01 Condition: Good Clinical Impression: Gastroenteritis, Renal mass, left - Discharge Information *PRESCRIPTION DRUG MONITORING PROGRAM REVIEWED*: Not Applicable *COPY OF PRESCRIPTION DRUG MONITORING REPORT IN PATIENT MIKE: Not Applicable Instructions: Renal Mass Referrals: PCP,Not In Area [Primary Care Provider] - Forms: ED Department Discharge Additional Instructions: The following information is given to patients seen in the emergency department who are being discharged to home. This information is to outline your options for follow-up care. We provide all patients seen in our emergency department with a follow-up referral. The need for follow-up, as well as the timing and circumstances, are variable depending upon the specifics of your emergency department visit. If you don't have a primary care physician on staff, we will provide you with a referral. We always advise you to contact your personal physician following an emergency department visit to inform them of the circumstance of the visit and for follow-up with them and/or the need for any referrals to a consulting specialist. The emergency department will also refer you to a specialist when appropriate. This referral assures that you have the opportunity for follow-up care with a specialist. All of these measure are taken in an effort to provide you with optimal care, which includes your follow-up. Under all circumstances we always encourage you to contact your private physician who remains a resource for coordinating your care. When calling for follow-up care, please make the office aware that this follow-up is from your recent emergency room visit. If for any reason you are refused follow-up, please contact the [facility] Emergency Department at and asked to speak to the emergency department charge nurse. Please follow up with your primary care physician. If you do not have a primary care physician, see below: [facility] [address] [place] [id number] [facility] [address] [place] [id number] [facility] at [address] [address] Please call and follow-up with your primary care doctor in reference to the mass found in your kidney on the CT scan. We also included information to call a cancer specialist as well. If you have any blood in urine difficulty urinating or other symptoms please return to the ED. Please see someone as soon as possible. Sepsis Event Note (ED) - Evaluation Sepsis Screening Result: No Definite Risk - Focused Exam Vital Signs: Vital Signs Temp Pulse Resp BP Pulse Ox 04/21/20 20:41 98.0 F 96 18 119/48 L 93 L - Assessment/Plan Plan: Patient 64-year-old female who presents today for abdominal pain on right side with nausea vomiting diarrhea. Patient was a test positive Covid however not have any shortness of breath but does report fever chills. Will obtain labs UA and CT scan. Not tolerating p.o. and feels better. Patient was made aware of CT findings. Patient has no weight loss or trouble urinating. Patient will be referred to oncology and also follow-up with her primary care physician.
[2020-04-21] MEDS ORDERED: Ondansetron 4 MG/2 ML SDV IVPUSH ONE (20:59)
[2020-04-21] MEDS ORDERED: Metoclopramide 10 MG/2 ML SDV IVPUSH ONE (21:58)
[2020-04-21 22:00] LABS: BLOOD UREA NITROGEN,BUN 10 mg/dL (7.0-18.0); CARBON DIOXIDE,CO2 25.5 mmol/L (21.0-32.0); CHLORIDE,CL 102 mmol/L (98-107); GLUCOSE RANDOM 134 mg/dL (74-106); LIPASE 102 U/L (73-393); POTASSIUM,K 3.2 mmol/L (3.5-5.1); SODIUM,NA 137 mmol/L (136-145)
--- NOTE | 2020-04-21 22:33 | CR ---
INDICATION: History of COVID-19 TECHNIQUE: Chest radiograph 1 view COMPARISON: 04/17/2020 FINDINGS: Moderate degradation of image quality noted due to body habitus. Mediastinum: The mediastinum is normal in appearance. Mild stable cardiomegaly is noted. Lung: Airspace consolidation seen in the lateral right midlung zone and slightly increased compared to prior exam. No sign of pleural effusion seen. No pneumothorax is identified. Bone and Soft tissue: Unremarkable for age. IMPRESSIONS: 1. Airspace consolidation seen in the lateral right midlung zone and slightly increased compared to prior exam. Findings are consistent with patient`s history of COVID-19 infection. 2. Mild stable cardiomegaly is noted. Dictated by Good Lanza MD @ 04/21/2020 10:32:26 PM Dictated by: Good Lanza MD @ 04/21/2020 22:32:30 (Electronically Signed)
[2020-04-21] MEDS ORDERED: Iopamidol 755 Mg/ML 100 ML Bottle IVPUSH STA (22:52)
--- NOTE | 2020-04-21 23:50 | CT ---
INDICATION: RIGHT SIDED ABD PAIN, N/V CT ABDOMEN AND PELVIS WITH CONTRAST TECHNIQUE: Multidetector CT imaging was performed through the abdomen and pelvis following intravenous contrast administration using 100 mL Isovue 370. Coronal and sagittal reconstructions were generated. COMPARISON: None. FINDINGS: Lower chest: Multiple areas of patchy ground-glass opacity in both lung bases. Liver: Diffuse fatty infiltration of the liver. No focal liver lesion identified. Gallbladder and bile ducts: No gallbladder wall thickening or calcified gallstones. No biliary dilation identified. Pancreas: Unremarkable. Spleen: Normal. Adrenals: No nodules or masses. Kidneys, ureters, and urinary bladder: Very large, irregularly lobulated, markedly heterogeneous mass arises from and extends exophytically from the upper and mid portions of the right kidney, consistent with renal neoplasm, likely renal cell carcinoma. The mass measures 17.3 x 13.0 x 10.8 centimeters, contains punctate calcifications, and is surrounded by large venous collateral vessels which appear to drain into the left renal vein. The right kidney appears normal. The bladder has mild wall prominence due to nondistention. Gastrointestinal tract: Small hiatal hernia. Normal caliber bowel without wall thickening. The appendix is normal. Vascular structures: Normal caliber abdominal aorta with mild atherosclerotic calcifications. Peritoneum: No free air, abscess, or significant free fluid. Lymph nodes: Several hypodense nodules to the left of the abdominal aorta at the level of the left kidney likely represent mildly enlarged lymph nodes. No pathologically enlarged nodes identified elsewhere in the abdomen or pelvis. Reproductive organs: Status post hysterectomy. No pelvic masses. Bones: Mild spinal degenerative changes. Probable hemangioma in the T11 vertebral body. IMPRESSION: 1. 17.3 x 13.0 x 10.8 centimeter left renal mass as detailed above, likely representing renal cell carcinoma. 2. Mild left periaortic lymphadenopathy. No other evidence of metastatic spread. 3. Nonacute additional findings as detailed above. EDILMA MCCLAIN MD [employer] Dictated by Darnell Mcclain MD @ 04/21/2020 11:49:07 PM Dictated by: Darnell Mcclain MD @ 04/21/2020 23:49:49 (Electronically Signed)
[2020-04-22 00:10] VITALS: BP 136/80; PULSE 80
== END 2020-04-22 00:10 | disposition home or self-care (01) ==
LOC: MW.ED 20:28
DX: K52.9 Noninfective gastroenteritis and colitis, unspecified (principal); I10 Essential (primary) hypertension; J45.909 Unspecified asthma, uncomplicated; N28.89 Other specified disorders of kidney and ureter; E11.9 Type 2 diabetes mellitus without complications; Z88.6 Allergy status to analgesic agent; Z88.5 Allergy status to narcotic agent; Z88.0 Allergy status to penicillin
CPT/HCPCS: 36415; 71045; 74177; 80053; 83690; 85025; 96374; 96375; 99284; J2405; J2765; J7030; Q9967; 99283

== ENCOUNTER 2021-02-02 17:16 | Emergency (ER) | payer MEDICARE, MEDICAID ==
[2021-02-02] MEDS ORDERED: Sodium Chloride 0.9% 1,000 ML IV ONE (17:47)
[2021-02-02] MEDS ORDERED: Ondansetron 4 MG/2 ML SDV IVPUSH ONE (17:47)
--- NOTE | 2021-02-02 17:52 | EDM.PDOC ---
ED HPI GENERAL MEDICAL PROBLEM - General Chief Complaint: Gastrointestinal Problem Stated Complaint: FEELING NAUSUS Time Seen by Provider: 02/02/21 17:20 Source of Information: Reports: Patient History Limitations: Reports: No Limitations - History of Present Illness INITIAL COMMENTS - FREE TEXT/NARRATIVE: HISTORY AND PHYSICAL: History of present illness: Patient is a 65-year-old female who presents to the emergency room with complaints of headache, nausea, generalized abdominal cramping and diarrhea. Patient states she has had a generalized headache over the past several days and has been trying to use [id number] sinus/headache medication without any relief. Yesterday she started having abdominal cramping with several episodes of diarrhea. Today she feels nauseated without vomiting. Patient denies any fever, chills, change in vision, syncope or near syncope. Denies any chest pain, back pain, shortness of breath or cough. Denies any constipation, dysuria, or blood in urine or stool. Patient has been eating and drinking appropriately. Review of systems: As per history of present illness and below otherwise all systems reviewed and negative. Past medical history: As per history of present illness and as reviewed below otherwise noncontributory. Surgical history: As per history of present illness and as reviewed below otherwise noncontributory. Social history: See social history for further information Family history: As per history of present illness and as reviewed below otherwise noncontributory. Physical exam: General: Well developed and well nourished 65-year-old female. Alert and orientated x 3. Nontoxic in appearance and in no acute distress. Vital signs are stable and have been reviewed by me. Nursing notes were reviewed. HEENT: Atraumatic, normocephalic, pupils equal and reactive bilaterally, negative for conjunctival pallor or scleral icterus, mucous membranes moist, TMs normal bilaterally, throat clear, neck supple, nontender, trachea midline. No drooling or trismus noted. No meningeal signs. No hot potato voice noted. Lungs: Clear to auscultation bilaterally. No wheezes, rales, or rhonchi. Chest nontender. Normal work of breathing, no accessory muscles used. Heart: S1S2, regular rate and rhythm without overt murmur, gallops, or rubs. No JVD. No peripheral edema Abdomen: Soft, obese, nontender. Normoactive bowel sounds. Negative for masses or costovertebral tenderness. Pelvis: Stable nontender. Genitourinary/Rectal: Deferred. Skin: Intact, warm, dry. No lesions or rashes noted. Hematologic: No petechiae or purpra. Mucosa appropriate color and normal nail bed color and refill. Extremities: Atraumatic, moves all extremities per self without difficulty or deficits, negative for cords or calf pain. Neurovascular unremarkable. Neuro: Awake, alert, oriented. Cranial nerves II through XII unremarkable. Cerebellum unremarkable. Motor and sensory unremarkable throughout. Exam nonfocal. Psychiatric: Mood and affect are appropriate. Normal thought process. Answering questions appropriately. Notes: *This patient was seen and evaluated during the 2019 SARS-CoV-2 novel coronavirus pandemic period. Community viral transmission is ongoing at time of this encounter and the emergency department is operating under pandemic response procedures. Patient is a 65-year-old female who presents to the emergency room with complaints of gastroenteritis. She states symptoms started with a headache that was not relieved with [id number] medication. She states she has had COVID-19 and been vaccinated. She is actually getting a booster shot tomorrow at [facility]. We discussed doing basic lab work along with getting a stool study if able. She states she has not had a loose stool in several hours and is unsure if she will be able to go. She does request something for her headache, states she has had Toradol in the past "as long as it is in smaller doses". Her reaction to Toradol was some nausea. We will give her some Zofran as well. Patient's lab work is unremarkable. She was unable to give a stool at this time. She declines wanting to take equipment at home for obtaining a stool s tudy to bring back. She does feel improved after the fluids. I have talked with the patient about today's findings, in addition to providing specific details for plan of care. Reassessment at the time of disposition demonstrates that the patient is in no acute distress. The patient is stable for discharge, counseling was provided and we discussed in great detail signs and symptoms that would prompt them to return to the Emergency Department. Medication, follow up and supportive care measures were reviewed and discussed. Voices understanding and is agreeable to plan of care. Denies any further questions or concerns at this time. Diagnostics: CBC, CMP, Lipase, UA, Stool Studies Therapeutics: IV fluids, Zofran Prescription: Zofran Impression: Gastroenteritis Plan: 1. You were evaluated today on an emergent basis. Your labs are normal. You have a viral stomach bug. BRAT diet (bananas, rice, applesauce, toast) and bland diet. Advance as tolerated. Increase your oral fluids to prevent dehydration. Zofran as needed for nausea management. 2. You can alternate Tylenol and ibuprofen as needed for pain and fever management. 3. We encourage you to follow up with your primary care provider and/or recommended specialist in the next few days for re-evaluation and further care/management. 4. If your symptoms should worsen, new symptoms develop or any of the signs and symptoms we discussed should arise please return to the emergency room or call 911 (if needed). Definitive disposition and diagnosis as appropriate pending reevaluation and review of above. - Related Data Allergies Allergy/AdvReac Type Severity Reaction Status Date / Time aspirin Allergy Nausea Verified 02/02/21 17:26 codeine Allergy Hives Verified 02/02/21 17:26 ketorolac [From Toradol] Allergy Nausea Verified 02/02/21 17:26 morphine Allergy Difficulty Verified 02/02/21 17:26 Breathing Penicillins Allergy Hives Verified 02/02/21 17:26 Tricyclic Compounds Allergy Vomiting Verified 02/02/21 17:26 Home Meds: Home Meds Omeprazole 1 tab PO DAILY 10/16/19 [History] Telmisartan 1 tab PO DAILY 10/16/19 [History] Albuterol Sulfate [Albuterol Sulfate Hfa] 1 dose INH ASDIRECTED 04/17/20 [History] Past Medical History HEENT History: Reports: Impaired Vision Cardiovascular History: Reports: Hypertension Respiratory History: Reports: Asthma [employer] History: Reports: Neurological History: Reports: None Psychiatric History: Reports: Anxiety Endocrine/Metabolic History: Reports: Diabetes, Type II, Other (See Below) Other Endocrine/Metabolic History: "PREDIABETIC" Hematologic History: Reports: None Immunologic History: Reports: None Oncologic (Cancer) History: Reports: None Dermatologic History: Reports: None - Infectious Disease History Infectious Disease History: Reports: Chicken Pox, Hepatitis non A,B,C, Measles, Mumps, Novel Coronavirus - Past Surgical History Head Surgeries/Procedures: Reports: None HEENT Surgical History: Reports: None Cardiovascular Surgical History: Reports: Other (See Below) Other Cardiovascular Surgeries/Procedures: ANGIOGRAM GI Surgical History: Reports: Appendectomy Female Surgical History: Reports: Nephrectomy Endocrine Surgical History: Reports: None Neurological Surgical History: Reports: None Musculoskeletal Surgical History: Reports: Arthroscopic Procedure, Other (See Below) Other Musculoskeletal Surgeries/Procedures:: Bilateral Knee 2015- Titanium implant. right wrist Oncologic Surgical History: Reports: None Dermatological Surgical History: Reports: None Social & Family History - Family History Family Medical History: No Pertinent Family History - Tobacco Use Tobacco Use Status *Q: Never Tobacco User Second Hand Smoke Exposure: No - Caffeine Use Caffeine Use: Reports: Coffee, Soda, Tea - Recreational Drug Use Recreational Drug Use: No ED ROS GENERAL - Review of Systems Review Of Systems: Comprehensive ROS is negative, except as noted in HPI. ED EXAM, GI/ABD - Physical Exam Exam: See Below (See dictation) Course - Vital Signs Last Recorded V/S: Last Vital Signs Temp 98.4 F 02/02/21 17:26 Pulse 93 02/02/21 17:26 Resp 16 02/02/21 17:26 BP 118/70 02/02/21 17:26 Pulse Ox 96 02/02/21 17:26 - Orders/Labs/Meds Orders: Active Orders 24 hr Category Date Time Status Communication Order [RC] STAT Care 02/02/21 18:43 Active CAMPYLOBACTER CULT [MREF] Stat Lab 02/02/21 17:33 Ordered OVA & PARASITES BY IMMUNOASSAY [MREF] Stat Lab 02/02/21 17:33 Ordered SHIGA TOXIN 1 & 2 [MREF] Stat Lab 02/02/21 17:33 Ordered STOOL CULTURE/SHIGA TOXIN [MREF] Stat Lab 02/02/21 17:33 Ordered Isolation [COMM] Routine Oth 02/02/21 17:47 Active Labs: Laboratory Tests 02/02/21 02/02/21 02/02/21 Range/Units 17:32 17:43 17:43 WBC 5.75 (4.0-11.0) K/uL RBC 5.08 (4.30-5.90) M/uL Hgb 12.9 (12.0-16.0) g/dL Hct 39.9 (36.0-46.0) % MCV 78.5 L (80.0-98.0) fL MCH 25.4 L (27.0-32.0) pg MCHC 32.3 (31.0-37.0) g/dL RDW Std Deviation 47.5 (28.0-62.0) fl RDW Coeff of Bobby 17 H (11.0-15.0) % Plt Count 216 (150-400) K/uL MPV 9.90 (7.40-12.00) fL Neut % (Auto) 57.1 (48.0-80.0) % Lymph % (Auto) 31.3 (16.0-40.0) % Meagher % (Auto) 10.6 (0.0-15.0) % Eos % (Auto) 0.7 (0.0-7.0) % Baso % (Auto) 0.3 (0.0-1.5) % Neut # (Auto) 3.3 (1.4-5.7) K/uL Lymph # (Auto) 1.8 (0.6-2.4) K/uL Meagher # (Auto) 0.6 (0.0-0.8) K/uL Eos # (Auto) 0.0 (0.0-0.7) K/uL Baso # (Auto) 0.0 (0.0-0.1) K/uL Nucleated RBC % 0.0 /100WBC Nucleated RBCs # 0 K/uL Sodium 137 (136-145) mmol/L Potassium 3.9 (3.5-5.1) mmol/L Chloride 102 (98-107) mmol/L Carbon Dioxide 25.5 (21.0-32.0) mmol/L BUN 16 (7.0-18.0) mg/dL Creatinine 1.1 H (0.6-1.0) mg/dL Est Cr Clr Drug Dosing 45.27 mL/min Estimated GFR (MDRD) 49.7 ml/min Glucose 103 (74-106) mg/dL Calcium 8.3 L (8.5-10.1) mg/dL Total Bilirubin 0.3 (0.2-1.0) mg/dL AST 15 (15-37) IU/L ALT 20 (14-63) IU/L Alkaline Phosphatase 122 H (46-116) U/L Total Protein 7.6 (6.4-8.2) g/dL Albumin 3.7 (3.4-5.0) g/dL Globulin 3.9 (2.6-4.0) g/dL Albumin/Globulin Ratio 0.9 (0.9-1.6) Lipase 145 (73-393) U/L Urine Color YELLOW Urine Appearance CLEAR Urine pH 6.5 (5.0-8.0) Ur Specific [place] 1.025 (1.001-1.035) Urine Protein NEGATIVE (NEGATIVE) mg/dL Urine Glucose (UA) NEGATIVE (NEGATIVE) mg/dL Urine Ketones NEGATIVE (NEGATIVE) mg/dL Urine Occult Blood NEGATIVE (NEGATIVE) Urine Nitrite NEGATIVE (NEGATIVE) Urine Bilirubin NEGATIVE (NEGATIVE) Urine Urobilinogen 0.2 (<2.0) EU/dL Ur Leukocyte Esterase NEGATIVE (NEGATIVE) SARS-CoV-2 RNA (ANJALI) (NEGATIVE) 02/02/21 Range/Units 18:05 WBC (4.0-11.0) K/uL RBC (4.30-5.90) M/uL Hgb (12.0-16.0) g/dL Hct (36.0-46.0) % MCV (80.0-98.0) fL MCH (27.0-32.0) pg MCHC (31.0-37.0) g/dL RDW Std Deviation (28.0-62.0) fl RDW Coeff of Bobby (11.0-15.0) % Plt Count (150-400) K/uL MPV (7.40-12.00) fL Neut % (Auto) (48.0-80.0) % Lymph % (Auto) (16.0-40.0) % Meagher % (Auto) (0.0-15.0) % Eos % (Auto) (0.0-7.0) % Baso % (Auto) (0.0-1.5) % Neut # (Auto) (1.4-5.7) K/uL Lymph # (Auto) (0.6-2.4) K/uL Meagher # (Auto) (0.0-0.8) K/uL Eos # (Auto) (0.0-0.7) K/uL Baso # (Auto) (0.0-0.1) K/uL Nucleated RBC % /100WBC Nucleated RBCs # K/uL Sodium (136-145) mmol/L Potassium (3.5-5.1) mmol/L Chloride (98-107) mmol/L Carbon Dioxide (21.0-32.0) mmol/L BUN (7.0-18.0) mg/dL Creatinine (0.6-1.0) mg/dL Est Cr Clr Drug Dosing mL/min Estimated GFR (MDRD) ml/min Glucose (74-106) mg/dL Calcium (8.5-10.1) mg/dL Total Bilirubin (0.2-1.0) mg/dL AST (15-37) IU/L ALT (14-63) IU/L Alkaline Phosphatase (46-116) U/L Total Protein (6.4-8.2) g/dL Albumin (3.4-5.0) g/dL Globulin (2.6-4.0) g/dL Albumin/Globulin Ratio (0.9-1.6) Lipase (73-393) U/L Urine Color Urine Appearance Urine pH (5.0-8.0) Ur Specific [place] (1.001-1.035) Urine Protein (NEGATIVE) mg/dL Urine Glucose (UA) (NEGATIVE) mg/dL Urine Ketones (NEGATIVE) mg/dL Urine Occult Blood (NEGATIVE) Urine Nitrite (NEGATIVE) Urine Bilirubin (NEGATIVE) Urine Urobilinogen (<2.0) EU/dL Ur Leukocyte Esterase (NEGATIVE) SARS-CoV-2 RNA (ANJALI) NEGATIVE (NEGATIVE) Meds: Medications Discontinued Medications Generic Name Dose Route Start Last Admin Trade Name Freq PRN Reason Stop Dose Admin Sodium Chloride 1,000 mls @ 999 mls/hr 02/02/21 17:47 02/02/21 18:01 Normal Saline IV 02/02/21 18:47 999 mls/hr STAT ONE Administration Ketorolac Tromethamine 15 mg 02/02/21 18:50 02/02/21 18:53 Ketorolac 15 Mg/Ml Sdv IVPUSH 02/02/21 18:51 15 mg NOW STA Administration Ondansetron HCl 4 mg 02/02/21 17:47 02/02/21 18:02 Ondansetron 4 Mg/2 Ml Sdv IVPUSH 02/02/21 17:48 4 mg ONETIME ONE Administration Departure - Departure Time of Disposition: 19:53 Disposition: Home, Self-Care 01 Clinical Impression: Gastroenteritis - Discharge Information Instructions: Viral Gastroenteritis, Adult, [id number] Referrals: PCP,None [Primary Care Provider] - Forms: ED Department Discharge Additional Instructions: The following information is given to patients seen in the emergency department who are being discharged to home. This information is to outline your options for follow-up care. We provide all patients seen in our emergency department with a follow-up referral. The need for follow-up, as well as the timing and circumstances, are variable depending upon the specifics of your emergency department visit. If you don't have a primary care physician on staff, we will provide you with a referral. We always advise you to contact your personal physician following an emergency department visit to inform them of the circumstance of the visit and for follow-up with them and/or the need for any referrals to a consulting specialist. The emergency department will also refer you to a specialist when appropriate. This referral assures that you have the opportunity for follow-up care with a specialist. All of these measure are taken in an effort to provide you with optimal care, which includes your follow-up. Under all circumstances we always encourage you to contact your private physician who remains a resource for coordinating your care. When calling for follow-up care, please make the office aware that this follow-up is from your recent emergency room visit. If for any reason you are refused follow-up, please contact the [facility] Emergency Department at and asked to speak to the emergency department charge nurse. [facility] [address] [place] [id number] [id number] Thank you for choosing the [facility] emergency department in [place] for your medical needs today. It was a pleasure caring for you. Today you were seen in the emergency department for gastroenteritis. 1. You were evaluated today on an emergent basis. Your labs are normal. You have a viral stomach bug. BRAT diet (bananas, rice, applesauce, toast) and bland diet. Advance as tolerated. Increase your oral fluids to prevent dehydration. Z ofran as needed for nausea management. 2. You can alternate Tylenol and ibuprofen as needed for pain and fever management. 3. We encourage you to follow up with your primary care provider and/or rec ommended specialist in the next few days for re-evaluation and further care/management. 4. If your symptoms should worsen, new symptoms develop or any of the signs and symptoms we discussed should arise please return to the emergency room or call 911 (if needed). Sepsis Event Note (ED) - Evaluation Sepsis Screening Result: No Definite Risk - Focused Exam Vital Signs: Vital Signs Temp Pulse Resp BP Pulse Ox 02/02/21 17:26 98.4 F 93 16 118/70 96 - My Orders Last 24 Hours: My Active Orders 02/02/21 17:33 CAMPYLOBACTER CULT [MREF] Stat OVA & PARASITES BY IMMUNOASSAY [MREF] Stat SHIGA TOXIN 1 & 2 [MREF] Stat STOOL CULTURE/SHIGA TOXIN [MREF] Stat 02/02/21 17:47 Isolation [COMM] Routine 02/02/21 18:43 Communication Order [RC] STAT - Assessment/Plan Last 24 Hours: My Active Orders 02/02/21 17:33 CAMPYLOBACTER CULT [MREF] Stat OVA & PARASITES BY IMMUNOASSAY [MREF] Stat SHIGA TOXIN 1 & 2 [MREF] Stat STOOL CULTURE/SHIGA TOXIN [MREF] Stat 02/02/21 17:47 Isolation [COMM] Routine 02/02/21 18:43 Communication Order [RC] STAT
[2021-02-02 18:20] LABS: CARBON DIOXIDE,CO2 25.5 mmol/L (21.0-32.0); POTASSIUM,K 3.9 mmol/L (3.5-5.1)
[2021-02-02] MEDS ORDERED: Ketorolac 15 MG/ML SDV IVPUSH STA (18:50)
[2021-02-02 20:08] VITALS: BP 112/51; PULSE 82
== END 2021-02-02 20:06 | disposition home or self-care (01) ==
LOC: MW.ED 17:16
DX: K52.9 Noninfective gastroenteritis and colitis, unspecified (principal); I10 Essential (primary) hypertension; J45.909 Unspecified asthma, uncomplicated; E11.9 Type 2 diabetes mellitus without complications; Z88.8 Allergy status to other drugs, medicaments and biological substances; Z88.5 Allergy status to narcotic agent; Z88.0 Allergy status to penicillin; Z79.899 Other long term (current) drug therapy; Z20.822 Contact with and (suspected) exposure to COVID-19
CPT/HCPCS: 36415; 80053; 81003; 83690; 85025; 87804; 96374; 96375; 99284; J1885; J2405; J7030; U0002

== ENCOUNTER 2021-02-20 11:25 | Emergency (ER) | payer MEDICARE, MEDICAID ==
[2021-02-20] MEDS ORDERED: oxyCODONE 5 MG Tab PO ONE (11:59)
--- NOTE | 2021-02-20 12:01 | EDM.PDOC ---
ED HPI GENERAL MEDICAL PROBLEM - General Chief Complaint: Abdominal Pain Stated Complaint: FALL, INJURY TO ABDOMEN Time Seen by Provider: 02/20/21 11:27 Source of Information: Reports: Patient History Limitations: Reports: No Limitations - History of Present Illness INITIAL COMMENTS - FREE TEXT/NARRATIVE: HISTORY AND PHYSICAL: History of present illness: The patient is a 65-year-old female who presents to the emergency room with complaints of right elbow pain and right upper quad pain after slipping while cleaning her toilet yesterday. The patient states that she was leaning on the handicap bars which are on either side of the toilet leaning on the right elbow while wiping the toilet lid, when she slipped and hit her elbow on the toilet lid and her right upper quadrant on the handicap railing. The patient states that she had immediate right elbow pain and treated it with ice and Tylenol. The patient states that her elbow pain has lessened but still has pain when anyone touches the elbow. The patient states she was getting in her car today and started to have a burning painful sensation in her right upper quad and became concerned due to the fall. Patient denies any fever, chills, headache, change in vision, syncope or near syncope. Denies any chest pain, back pain, shortness of breath or cough. Denies any abdominal pain, nausea, vomiting, diarrhea, constipation or dysuria. Has not noted any blood in urine or stool. Patient has been eating and drinking appropriately. Review of systems: As per history of present illness and below otherwise all systems reviewed and negative. Past medical history: As per history of present illness and as reviewed below otherwise noncontributory. Surgical history: As per history of present illness and as reviewed below otherwise noncontributory. Social history: See social history for further information Family history: As per history of present illness and as reviewed below otherwise noncontributory. Physical exam: General: Well developed and well nourished. Alert and orientated x 3. Nontoxic in appearance and in no acute distress. Vital signs are stable and have while cleaning her toilet yesterday. Reviewed by me. Nursing notes were reviewed. HEENT: Atraumatic, normocephalic, pupils equal and reactive bilaterally, negative for conjunctival pallor or scleral icterus, mucous membranes moist, TMs normal bilaterally, throat clear, neck supple, nontender, trachea midline. No drooling or trismus noted. No meningeal signs. No hot potato voice noted. Lungs: Clear to auscultation bilaterally. No wheezes, rales, or rhonchi. Chest nontender. Normal work of breathing, no accessory muscles used. Heart: S1S2, regular rate and rhythm without overt murmur, gallops, or rubs. No JVD. No peripheral edema Abdomen: Soft, nondistended, RUQ tenderness. Normoactive bowel sounds. Negative for masses or costovertebral tenderness. Skin: Intact, warm, dry. No lesions or rashes noted. Hematologic: No petechiae or purpra. Mucosa appropriate color and normal nail bed color and refill. Extremities: Right elbow & shoulder tenderness with movement and touch. Swelling to right elbow. Moves all other extremities per self without difficulty or deficits, negative for cords or calf pain. Neurovascular unremarkable. Neuro: Awake, alert, oriented. Cranial nerves II through XII unremarkable. Cerebellum unremarkable. Motor and sensory unremarkable throughout. Exam nonfocal. Psychiatric: Mood and affect are appropriate. Normal thought process. Answering questions appropriately. Notes: *This patient was seen and evaluated during the 2019 SARS-CoV-2 novel coronavirus pandemic period. Community viral transmission is ongoing at time of this encounter and the emergency department is operating under pandemic response procedures. Stated above the patient is a 65-year-old female states that while cleaning her toilet hitting her right elbow on toilet lid and her right upper quad on the handicap railing. The patient has a history of renal carcinoma for which she had 1 kidney removed. She states that 2 weeks ago she had her checkup and had a CT and all was well. On exam the patient's right upper quadrant is soft but very tender. The patient describes the pain as a burning in nature. We are obtaining blood work on the patient and then I will order a CT of the abdomen. I will order x-rays on the elbow and shoulder area. Patient is allergic to codeine and morphine but does take oxycodone at home, so I will order oxycodone here for her pain control. The patient is agreeable with this plan. Patient's blood work is unremarkable. I have ordered the CT of the abdomen and the patient is agreeable with this. The CT of abdomen and pelvis Impression: 1. No acute findings in the abdomen or pelvis. No free fluid or free air. No acute fracture seen. 2. 3 mm right lower lobe ground glass nodule unchanged per Fleischner society guidelines. Right extremity elbow x-ray Impression: Mild deg enerative change. No acute fracture. Right shoulder x-ray IMPRESSION: No acute abnormality of the right shoulder. I informed the patient of the results and she is ready for discharge. Patient displayed to be sure there was nothing going on. I informed the patient that she might need to follow-up with primary care and see how physical therapy. I also informed the patient she can use her oxycodone at home for pain control. The patient is agreeable with this discharge plan. I have talked with the patient about today's findings, in addition to providing specific details for plan of care. Reassessment at the time of disposition demonstrates that the patient is in no acute distress. The patient is stable for discharge, counseling was provided and we discussed in great detail signs and symptoms that would prompt them to return to the Emergency Department. Medication, follow up and supportive care measures were reviewed and discussed. Voices understanding and is agreeable to plan of care. Denies any further questions or concerns at this time. Diagnostics: CBC, CMP, right shoulder and elbow x-ray, CT abdomen\\pelvis Therapeutics: Oxycodone Impression: Right elbow and shoulder contusion, abdominal pain Plan: 1. You were evaluated today on an emergent basis. Your plaints of right elbow and shoulder pain were evaluated with an x-ray. They were both negative for any fracture. Your right upper quad pain was evaluated with a CT scan which showed no acute findings in the abdomen or pelvis. Your blood work was within normal limits. You can continue to use your oxycodone that you have at home for pain management. If you have worsening symptoms please return to the emergency department 2. You can alternate Tylenol and ibuprofen as needed for pain and fever management. 3. We encourage you to follow up with your primary care provider and/or recommended specialist in the next few days for re-evaluation and further care/management. 4. If your symptoms should worsen, new symptoms develop or any of the signs and symptoms we discussed should arise please return to the emergency room or call 911 (if needed). Definitive disposition and diagnosis as appropriate pending reevaluation and review of above. Right Elbow Pain Score (Numeric/FACES): 9 abdomen Pain Score (Numeric/FACES): 4 - Related Data Allergies Allergy/AdvReac Type Severity Reaction Status Date / Time aspirin Allergy Nausea Verified 02/20/21 11:43 codeine Allergy Hives Verified 02/20/21 11:43 diphenhydramine Allergy Hives Verified 02/20/21 11:44 [From Benadryl] ketorolac [From Toradol] Allergy Nausea Verified 02/20/21 11:43 morphine Allergy Difficulty Verified 02/20/21 11:43 Breathing NSAIDS (Non-Steroidal Allergy Hives Verified 02/20/21 11:44 Anti-Inflamma Penicillins Allergy Hives Verified 02/20/21 11:43 Tricyclic Compounds Allergy Vomiting Verified 02/20/21 11:43 Home Meds: Home Meds Omeprazole 1 tab PO DAILY 10/16/19 [History] Albuterol Sulfate [Albuterol Sulfate Hfa] 1 dose INH ASDIRECTED 04/17/20 [History] Candesartan [Atacand] 16 mg PO DAILY 02/20/21 [History] Past Medical History HEENT History: Reports: Impaired Vision Cardiovascular History: Reports: Hypertension Respiratory History: Reports: Asthma [employer]ER History: Reports: Neurological History: Reports: None Psychiatric History: Reports: Anxiety Endocrine/Metabolic History: Reports: Diabetes, Type II, Other (See Below) Other Endocrine/Metabolic History: "PREDIABETIC" Hematologic History: Reports: None Immunologic History: Reports: None Oncologic (Cancer) History: Reports: None Dermatologic History: Reports: None - Infectious Disease History Infectious Disease History: Reports: Chicken Pox, Hepatitis non A,B,C, Measles, Mumps, Novel Coronavirus - Past Surgical History Head Surgeries/Procedures: Reports: None HEENT Surgical History: Reports: None Cardiovascular Surgical History: Reports: Other (See Below) Other Cardiovascular Surgeries/Procedures: ANGIOGRAM GI Surgical History: Reports: Appendectomy Female Surgical History: Reports: Nephrectomy Endocrine Surgical History: Reports: None Neurological Surgical History: Reports: None Musculoskeletal Surgical History: Reports: Arthroscopic Procedure, Other (See Below) Other Musculoskeletal Surgeries/Procedures:: Bilateral Knee 2015- Titanium implant. right wrist Oncologic Surgical History: Reports: None Dermatological Surgical History: Reports: None Social & Family History - Family History Family Medical History: No Pertinent Family History - Tobacco Use Tobacco Use Status *Q: Never Tobacco User Second Hand Smoke Exposure: No - Caffeine Use Caffeine Use: Reports: None - Recreational Drug Use Recreational Drug Use: No ED ROS GENERAL - Review of Systems Review Of Systems: Comprehensive ROS is negative, except as noted in HPI. ED EXAM, GENERAL - Physical Exam Exam: See Below (See dictation) Course - Vital Signs Last Recorded V/S: Last Vital Signs Temp 97.6 F 02/20/21 15:01 Pulse 75 02/20/21 15:01 Resp 18 02/20/21 15:01 BP 100/55 L 02/20/21 15:01 Pulse Ox 98 02/20/21 15:01 - Orders/Labs/Meds Labs: Laboratory Tests 02/20/21 02/20/21 Range/Units 12:11 12:11 WBC 6.76 (4.0-11.0) K/uL RBC 4.86 (4.30-5.90) M/uL Hgb 12.3 (12.0-16.0) g/dL Hct 38.1 (36.0-46.0) % MCV 78.4 L (80.0-98.0) fL MCH 25.3 L (27.0-32.0) pg MCHC 32.3 (31.0-37.0) g/dL RDW Std Deviation 45.5 (28.0-62.0) fl RDW Coeff of Bobby 16 H (11.0-15.0) % Plt Count 253 (150-400) K/uL MPV 9.80 (7.40-12.00) fL Neut % (Auto) 53.3 (48.0-80.0) % Lymph % (Auto) 38.2 (16.0-40.0) % Jenkins % (Auto) 6.1 (0.0-15.0) % Eos % (Auto) 2.1 (0.0-7.0) % Baso % (Auto) 0.3 (0.0-1.5) % Neut # (Auto) 3.6 (1.4-5.7) K/uL Lymph # (Auto) 2.6 H (0.6-2.4) K/uL Jenkins # (Auto) 0.4 (0.0-0.8) K/uL Eos # (Auto) 0.1 (0.0-0.7) K/uL Baso # (Auto) 0.0 (0.0-0.1) K/uL Nucleated RBC % 0.0 /100WBC Nucleated RBCs # 0 K/uL Sodium 138 (136-145) mmol/L Potassium 4.3 (3.5-5.1) mmol/L Chloride 103 (98-107) mmol/L Carbon Dioxide 25.4 (21.0-32.0) mmol/L BUN 18 (7.0-18.0) mg/dL Creatinine 0.9 (0.6-1.0) mg/dL Est Cr Clr Drug Dosing 55.33 mL/min Estimated GFR (MDRD) > 60.0 ml/min Glucose 102 (74-106) mg/dL Calcium 8.7 (8.5-10.1) mg/dL Total Bilirubin 0.3 (0.2-1.0) mg/dL AST 18 (15-37) IU/L ALT 23 (14-63) IU/L Alkaline Phosphatase 120 H (46-116) U/L Total Protein 7.6 (6.4-8.2) g/dL Albumin 3.5 (3.4-5.0) g/dL Globulin 4.1 H (2.6-4.0) g/dL Albumin/Globulin Ratio 0.9 (0.9-1.6) Meds: Medications Discontinued Medications Generic Name Dose Route Start Last Admin Trade Name Freq PRN Reason Stop Dose Admin Iopamidol 100 ml 02/20/21 19:12 02/20/21 19:13 Iopamidol 755 Mg/Ml 500 Ml Multipack Bottle IVPUSH 02/20/21 19:13 100 ml ONETIME STA Administration Oxycodone HCl 5 mg 02/20/21 11:59 02/20/21 12:11 Oxycodone 5 Mg Tab PO 02/20/21 12:00 5 mg ONETIME ONE Administration Sodium Chloride 10 ml 02/20/21 12:03 02/20/21 12:11 Sodium Chloride 0.9% 10 Ml Syringe FLUSH 10 ml ASDIRECTED PRN Administration Keep Vein Open Sodium Chloride 2.5 ml 02/20/21 12:03 02/20/21 12:11 Sodium Chloride 0.9% 2.5 Ml Syringe FLUSH 2.5 ml ASDIRECTED PRN Administration Keep Vein Open Departure - Departure Time of Disposition: 15:26 Disposition: Home, Self-Care 01 Condition: Good Clinical Impression: Abdominal pain Qualifiers: Abdominal location: right upper quadrant Qualified Code(s): R10.11 - Right upper quadrant pain Contusion Qualifiers: Encounter type: initial encounter Contusion area: upper arm Laterality: right Qualified Code(s): S40.021A - Contusion of right upper arm, initial encounter - Discharge Information *PRESCRIPTION DRUG MONITORING PROGRAM REVIEWED*: Not Applicable *COPY OF PRESCRIPTION DRUG MONITORING REPORT IN PATIENT MIKE: Not Applicable Instructions: Contusion, [id number] Referrals: Vanessa Yoo MD [Primary Care Provider] - Forms: ED Department Discharge Additional Instructions: The following information is given to patients seen in the emergency department who are being discharged to home. This information is to outline your options for follow-up care. We provide all patients seen in our emergency department with a follow-up referral. The need for follow-up, as well as the timing and circumstances, are variable depending upon the specifics of your emergency department visit. If you don't have a primary care physician on staff, we will provide you with a referral. We always advise you to contact your personal physician following an emergency department visit to inform them of the circumstance of the visit and f or follow-up with them and/or the need for any referrals to a consulting specialist. The emergency department will also refer you to a specialist when appropriate. This referral assures that you have the opportunity for follow-up care with a specialist. All of these measure are taken in an effort to provide you with optimal care, which includes your follow-up. Under all circumstances we always encourage you to contact your private physician who remains a resource for coordinating your care. When calling for follow-up care, please make the office aware that this follow-up is from your recent emergency room visit. If for any reason you are refused follow-up, please contact the [facility] Emergency Department at and asked to speak to the emergency department charge nurse. [facility] [address] [place] [id number] [address] [address] Plan: 1. You were evaluated today on an emergent basis. Your plaints of right elbow and shoulder pain were evaluated with an x-ray. They were both negative for any fracture. Your right upper quad pain was evaluated with a CT scan which showed no acute findings in the abdomen or pelvis. Your blood work was within normal limits. You can continue to use your oxycodone that you have at home for pain management. If you have worsening symptoms please return to the emergency department 2. You can alternate Tylenol and ibuprofen as needed for pain and fever management. 3. We encourage you to follow up with your primary care provider and/or recommended specialist in the next few days for re-evaluation and further care/management. 4. If your symptoms should worsen, new symptoms develop or any of the signs and symptoms we discussed should arise please return to the emergency room or call 911 (if needed). Sepsis Event Note (ED) - Evaluation Sepsis Screening Result: No Definite Risk
[2021-02-20] MEDS ORDERED: Sodium Chloride 0.9% 10 ML Syringe FLUSH PRN (12:03)
[2021-02-20] MEDS ORDERED: Sodium Chloride 0.9% 2.5 ML Syringe FLUSH PRN (12:03)
[2021-02-20 12:44] LABS: BLOOD UREA NITROGEN,BUN 18 mg/dL (7.0-18.0); CARBON DIOXIDE,CO2 25.4 mmol/L (21.0-32.0); CHLORIDE,CL 103 mmol/L (98-107); GLUCOSE RANDOM 102 mg/dL (74-106); POTASSIUM,K 4.3 mmol/L (3.5-5.1); SODIUM,NA 138 mmol/L (136-145)
--- NOTE | 2021-02-20 14:31 | CT ---
Indication: Right upper quadrant pain after falling Technique: Contrast-enhanced CT and pelvis with 100 mL Isovue 370 Comparison: CT abdomen pelvis 04/21/2020 Findings: Heart size normal. No pericardial effusion. Lung bases are clear aside from a 3 millimeter ground-glass nodule medial right lower lobe series 201, image 32 this is unchanged. Fatty liver spleen pancreas gallbladder unremarkable no abdominal aortic aneurysm. Left nephrectomy. Probable right parapelvic cysts. Diverticulosis bowel appears unremarkable. Urinary bladder unremarkable. Hysterectomy. No free fluid or free air. Minimal subcutaneous stranding in the anterior abdominal wall. No acute fractures seen Impression: 1. No acute findings in the abdomen or pelvis. No free fluid or free air. No acute fracture seen. 2.3 millimeter right lower lobe ground-glass nodule unchanged follow-up per Fleischner society guidelines. Please note that all CT scans at this facility use dose modulation, iterative reconstruction, and/or weight-based dosing when appropriate to reduce radiation dose to as low as reasonably achievable. Dictated by Estella Yadav MD @ 02/20/2021 2:29:40 PM (Electronically Signed)
--- NOTE | 2021-02-20 14:49 | CR ---
Indication: Hit elbow. Technique: Three views of the right elbow. Comparison: None Findings: No acute fracture or subluxation is identified. A significant joint effusion is not appreciated. Mild degenerative changes are identified. Impression: Mild degenerative change. No acute fracture Dictated by Adela Harry MD @ 02/20/2021 2:49:08 PM (Electronically Signed)
--- NOTE | 2021-02-20 14:52 | CR ---
HISTORY: Pain. Arm injury. TECHNIQUE: Right shoulder 2 views. COMPARISON: None. FINDINGS: No fracture or dislocation. Glenohumeral joint is not well profiled on these images. 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 IMPRESSION: No acute abnormality of the right shoulder. Dictated by Jose Mccallum MD @ 02/20/2021 2:50:41 PM (Electronically Signed)
[2021-02-20 15:02] VITALS: BP 100/55; PULSE 75
[2021-02-20] MEDS ORDERED: Iopamidol 755 MG/ML 500 ML Multipack Bottle IVPUSH STA (19:12)
== END 2021-02-20 15:54 | disposition home or self-care (01) ==
LOC: MW.ED 11:25
DX: S50.01XA Contusion of right elbow, initial encounter (principal); S40.011A Contusion of right shoulder, initial encounter; R10.11 Right upper quadrant pain; J45.909 Unspecified asthma, uncomplicated; I10 Essential (primary) hypertension; E11.9 Type 2 diabetes mellitus without complications; Z88.6 Allergy status to analgesic agent; Z88.5 Allergy status to narcotic agent; Z88.8 Allergy status to other drugs, medicaments and biological substances; Z88.0 Allergy status to penicillin; Z79.899 Other long term (current) drug therapy; W01.198A Fall on same level from slipping, tripping and stumbling with subsequent striking against other object, initial encounter; Y93.E9 Activity, other interior property and clothing maintenance
CPT/HCPCS: 36415; 73030; 73080; 74177; 80053; 85025; 99284; A9270; Q9967

== ENCOUNTER 2021-02-28 10:44 | Emergency (ER) | payer MEDICARE, MEDICAID ==
[2021-02-28] MEDS ORDERED: predniSONE 20 MG Tab PO STA (11:10)
--- NOTE | 2021-02-28 11:22 | EDM.PDOC ---
ED HPI GENERAL MEDICAL PROBLEM - General Chief Complaint: Allergic Reaction Stated Complaint: ALLERGIC REACTION TO BEE STING Time Seen by Provider: 02/28/21 10:45 Source of Information: Reports: Patient History Limitations: Reports: No Limitations - History of Present Illness INITIAL COMMENTS - FREE TEXT/NARRATIVE: HISTORY AND PHYSICAL: History of present illness: Patient is a 65-year-old female who presents to the emergency room with concerns of an allergic reaction to a bee sting to her right antecubital space. She states she was stung by a bee yesterday and had noticed some localized swelling which she had placed ice on and it had improved. She has an allergy to Benadryl and typically does steroids when she has any type of allergic reaction. Patient denies any fever, chills, headache, change in vision, syncope or near syncope. Denies any chest pain, back pain, shortness of breath or cough. Denies any abdominal pain, nausea, vomiting, diarrhea, constipation or dysuria. Has not noted any blood in urine or stool. Patient has been eating and drinking appropriately. Review of systems: As per history of present illness and below otherwise all systems reviewed and negative. Past medical history: As per history of present illness and as reviewed below otherwise noncontributory. Surgical history: As per history of present illness and as reviewed below otherwise noncontributory. Social history: See social history for further information Family history: As per history of present illness and as reviewed below otherwise noncontributory. Physical exam: General: Well developed and well nourished. Alert and orientated x 3. Nontoxic in appearance and in no acute distress. Vital signs are stable and have been reviewed by me. Nursing notes were reviewed. HEENT: Atraumatic, normocephalic, pupils equal and reactive bilaterally, negative for conjunctival pallor or scleral icterus, mucous membranes moist, TMs normal bilaterally, throat clear, neck supple, nontender, trachea midline. No drooling or trismus noted. No meningeal signs. No hot potato voice noted. Lungs: Clear to auscultation bilaterally. No wheezes, rales, or rhonchi. Chest nontender. Normal work of breathing, no accessory muscles used. Heart: S1S2, regular rate and rhythm without overt murmur, gallops, or rubs. No JVD. No peripheral edema Abdomen: Soft, nondistended, nontender. Skin: 3.5 cm circular area of erythema to the right antecubital space. Nonfluctuant and no induration. Remaining skin is intact, warm, dry. No lesions or rashes noted. Hematologic: No petechiae or purpra. Mucosa appropriate color and normal nail bed color and refill. Extremities: Atraumatic, moves all extremities per self without difficulty or deficits, negative for cords or calf pain. Neurovascular unremarkable. Neuro: Awake, alert, oriented. Cranial nerves II through XII unremarkable. Cerebellum unremarkable. Motor and sensory unremarkable throughout. Exam nonfocal. Psychiatric: Mood and affect are appropriate. Normal thought process. Answering questions appropriately. Please note that the patient was seen and evaluated during the 2019 SARS-CoV-2 novel coronavirus pandemic period. Community viral transmission is ongoing at time of this encounter and the emergency department is operating under pandemic response procedures. Medical Decision Making: Patient has an allergy to Benadryl and states when she has a bee sting she typically gets steroids. She has a localized area of redness and does not have any other symptoms other than the itching and tenderness over the site. I have talked with the patient about today's findings, in addition to providing specific details for plan of care. Reassessment at the time of disposition demonstrates that the patient is in no acute distress. The patient is stable for discharge, counseling was provided and we discussed in great detail signs and symptoms that would prompt them to return to the Emergency Department. Medication, follow up and supportive care measures were reviewed and discussed. Voices understanding and is agreeable to plan of care. Denies any further questions or concerns at this time. Diagnostics: None Therapeutics: Prednisone Prescription: Prednisone Impression: Bee sting Plan: 1. Avoid triggers. 2. Take the prednisone as prescribed. 3. Carry your Epi-Pen with you at all times. Use in the case of an emergency and call 911 and/or present to the ER. 4. You may use topical calamine lotion, cool tempid oatmeal baths, Aveeno bath/lotions. 5. Please follow up with your Primary care doctor next week. Return to the ED as needed and as discussed. Definitive disposition and diagnosis as appropriate pending reevaluation and review of above. Right Arm Pain Score (Numeric/FACES): 3 - Related Data Allergies Allergy/AdvReac Type Severity Reaction Status Date / Time aspirin Allergy Nausea Verified 02/28/21 10:55 codeine Allergy Hives Verified 02/28/21 10:55 diphenhydramine Allergy Hives Verified 02/28/21 10:55 [From Benadryl] ketorolac [From Toradol] Allergy Nausea Verified 02/28/21 10:55 morphine Allergy Difficulty Verified 02/28/21 10:55 Breathing NSAIDS (Non-Steroidal Allergy Hives Verified 02/28/21 10:55 Anti-Inflamma Penicillins Allergy Hives Verified 02/28/21 10:55 Tricyclic Compounds Allergy Vomiting Verified 02/28/21 10:55 Home Meds: Home Meds Omeprazole 1 tab PO DAILY 10/16/19 [History] Albuterol Sulfate [Albuterol Sulfate Hfa] 1 dose INH ASDIRECTED 04/17/20 [History] Candesartan [Atacand] 16 mg PO DAILY 02/20/21 [History] LORazepam [Ativan] 10 mg PO DAILY 02/28/21 [History] Past Medical History HEENT History: Reports: Impaired Vision Cardiovascular History: Reports: Hypertension Respiratory History: Reports: Asthma [employer]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: Reports: Neurological History: Reports: None Psychiatric History: Reports: Anxiety Endocrine/Metabolic History: Reports: Diabetes, Type II, Other (See Below) Other Endocrine/Metabolic History: "PREDIABETIC" Hematologic History: Reports: None Immunologic History: Reports: None Oncologic (Cancer) History: Reports: None Dermatologic History: Reports: None - Infectious Disease History Infectious Disease History: Reports: Chicken Pox, Hepatitis non A,B,C, Measles, Mumps, Novel Coronavirus - Past Surgical History Head Surgeries/Procedures: Reports: None HEENT Surgical History: Reports: None Cardiovascular Surgical History: Reports: Other (See Below) Other Cardiovascular Surgeries/Procedures: ANGIOGRAM GI Surgical History: Reports: Appendectomy Female Surgical History: Reports: Nephrectomy Endocrine Surgical History: Reports: None Neurological Surgical History: Reports: None Musculoskeletal Surgical History: Reports: Arthroscopic Procedure, Other (See Below) Other Musculoskeletal Surgeries/Procedures:: Bilateral Knee 2015- Titanium implant. right wrist Oncologic Surgical History: Reports: None Dermatological Surgical History: Reports: None Social & Family History - Family History Family Medical History: No Pertinent Family History - Tobacco Use Tobacco Use Status *Q: Never Tobacco User - Caffeine Use Caffeine Use: Reports: None - Recreational Drug Use Recreational Drug Use: No ED ROS ALLERGIC REACTION - Review of Systems Review Of Systems: Comprehensive ROS is negative, except as noted in HPI. ED EXAM GENERAL NO PERIP PULSE - Physical Exam Exam: See Below (See dictation) Course - Vital Signs Last Recorded V/S: Last Vital Signs Temp 97.4 F 02/28/21 11:40 Pulse 88 02/28/21 11:40 Resp 16 02/28/21 11:40 BP 116/53 L 02/28/21 11:40 Pulse Ox 96 02/28/21 11:40 - Orders/Labs/Meds Meds: Medications Discontinued Medications Generic Name Dose Route Start Last Admin Trade Name Freq PRN Reason Stop Dose Admin Prednisone 40 mg 02/28/21 11:10 02/28/21 11:16 Prednisone 20 Mg Tab PO 02/28/21 11:11 40 mg NOW STA Administration Departure - Departure Time of Disposition: 11:13 Disposition: Home, Self-Care 01 Clinical Impression: Bee sting reaction Qualifiers: Encounter type: initial encounter Injury intent: accidental or unintentional Qualified Code(s): T63.441A - Toxic effect of venom of bees, accidental (unintentional), initial encounter - Discharge Information Instructions: Bee, Wasp, or Hornet Sting, Adult Referrals: Vanessa Yoo MD [Primary Care Provider] - Forms: ED Department Discharge Additional Instructions: The following information is given to patients seen in the emergency department who are being discharged to home. This information is to outline your options for follow-up care. We provide all patients seen in our emergency department with a follow-up referral. The need for follow-up, as well as the timing and circumstances, are variable depending upon the specifics of your emergency department visit. If you don't have a primary care physician on staff, we will provide you with a referral. We always advise you to contact your personal physician following an emergency department visit to inform them of the circumstance of the visit and for follow-up with them and/or the need for any referrals to a consulting specialist. The emergency department will also refer you to a specialist when appropriate. This referral assures that you have the opportunity for follow-up care with a specialist. All of these measure are taken in an effort to provide you with optimal care, which includes your follow-up. Under all circumstances we always encourage you to contact your private physician who remains a resource for coordinating your care. When calling for follow-up care, please make the office aware that this follow-up is from your recent emergency room visit. If for any reason you are refused follow-up, please contact the [facility] Emergency Department at and asked to speak to the emergency department charge nurse. [facility] [address] [place] [address] [facility] [address] [place] [address] Thank you for choosing the [facility] emergency department in [place] for your medical needs today. It was a pleasure caring for you. Today you were seen in the emergency department for bee sting. 1. Avoid triggers. 2. Take the prednisone as prescribed. 3. Carry your Epi-Pen with you at all times. Use in the case of an emergency and call 911 and/or present to the ER. 4. You may use topical calamine lotion, cool tempid oatmeal baths, Aveeno bath/lotions. 5. Please follow up with your Primary care doctor next week. Return to the ED as needed and as discussed. Sepsis Event Note (ED) - Evaluation Sepsis Screening Result: No Definite Risk - Focused Exam Vital Signs: Vital Signs Temp Pulse Resp BP Pulse Ox 02/28/21 11:40 97.4 F 88 16 116/53 L 96 02/28/21 10:57 97.2 F 93 16 102/65 95
[2021-02-28 13:13] VITALS: BP 116/53; PULSE 88
== END 2021-02-28 11:41 | disposition home or self-care (01) ==
LOC: MW.ED 10:44
DX: T63.441A Toxic effect of venom of bees, accidental (unintentional), initial encounter (principal); I10 Essential (primary) hypertension; J45.909 Unspecified asthma, uncomplicated; Z88.6 Allergy status to analgesic agent; Z88.5 Allergy status to narcotic agent; Z88.0 Allergy status to penicillin; Z79.899 Other long term (current) drug therapy
CPT/HCPCS: 99282; A9270

== ENCOUNTER 2021-07-03 13:52 | Emergency (ER) | payer MEDICARE, MEDICAID ==
[2021-07-03] MEDS ORDERED: Lidocaine 5% 700 MG Patch TRDERM ONE (16:16)
[2021-07-03 16:30] VITALS: BP 120/61; PULSE 88
== END 2021-07-03 18:00 | disposition home or self-care (01) ==
LOC: MW.ED 13:52
DX: S09.90XA Unspecified injury of head, initial encounter (principal); M54.50 Low back pain, unspecified; I10 Essential (primary) hypertension; J45.909 Unspecified asthma, uncomplicated; E11.9 Type 2 diabetes mellitus without complications; Z88.8 Allergy status to other drugs, medicaments and biological substances; Z88.5 Allergy status to narcotic agent; Z88.6 Allergy status to analgesic agent; Z88.0 Allergy status to penicillin; Z79.899 Other long term (current) drug therapy; W00.0XXA Fall on same level due to ice and snow, initial encounter
CPT/HCPCS: 70450; 72100; 73502; 99284; A9270

== ENCOUNTER 2022-01-20 11:40 | Emergency (ER) | payer MEDICARE, MEDICAID ==
[2022-01-20] MEDS ORDERED: Sodium Chloride 0.9% 2.5 ML Syringe FLUSH PRN (12:08)
[2022-01-20] MEDS ORDERED: Sodium Chloride 0.9% 1,000 ML IV ONE (12:08)
[2022-01-20] MEDS ORDERED: Sodium Chloride 0.9% 10 ML Syringe FLUSH PRN (12:08)
[2022-01-20] MEDS ORDERED: Ondansetron 4 MG/2 ML SDV IVPUSH ONE (12:08)
[2022-01-20] MEDS ORDERED: Ketorolac 30 MG/ML SDV IVPUSH ONE (12:24)
[2022-01-20 13:02] LABS: CORONAVIRUS COVID-19 NAA POSITIVE (NEGATIVE); INFLUENZA A NAA NEGATIVE (NEGATIVE); INFLUENZA B NAA NEGATIVE (NEGATIVE)
[2022-01-20 13:04] LABS: CARBON DIOXIDE,CO2 23.9 mmol/L (21.0-32.0)
[2022-01-20 14:01] VITALS: BP 117/60; PULSE 99
== END 2022-01-20 14:19 | disposition home or self-care (01) ==
LOC: MW.ED 11:40
DX: U07.1 COVID-19 (principal); I10 Essential (primary) hypertension; E11.9 Type 2 diabetes mellitus without complications; Z88.6 Allergy status to analgesic agent; Z88.5 Allergy status to narcotic agent; Z88.8 Allergy status to other drugs, medicaments and biological substances; Z88.0 Allergy status to penicillin; Z79.899 Other long term (current) drug therapy; Z86.16 Personal history of COVID-19; Z90.49 Acquired absence of other specified parts of digestive tract
CPT/HCPCS: 0240U; 36415; 71045; 80053; 81003; 82947; 83690; 83880; 84484; 85025; 93005; 96361; 96374; 96375; 99284; J1885; J2405; J3490; J7030

== ENCOUNTER 2022-01-20 21:34 | Emergency (ER) | payer MEDICARE, MEDICAID ==
[2022-01-20] MEDS ORDERED: Ondansetron 4 MG Tab.DIS PO ONE (22:29)
[2022-01-20] MEDS ORDERED: Sodium Chloride 0.9% 1,000 ML IV STA (23:01)
[2022-01-20] MEDS ORDERED: Prochlorperazine 10 MG/2 ML SDV IVPUSH ONE (23:02)
[2022-01-20 23:44] LABS: CARBON DIOXIDE,CO2 24.8 mmol/L (21.0-32.0)
[2022-01-21] MEDS ORDERED: Iopamidol 755 MG/ML 500 ML Multipack Bottle IVPUSH ONE (01:37)
[2022-01-21 03:05] VITALS: BP 137/72; PULSE 112
== END 2022-01-21 02:35 | disposition home or self-care (01) ==
LOC: MW.ED 21:34
DX: U07.1 COVID-19 (principal); R11.10 Vomiting, unspecified; R06.02 Shortness of breath; I10 Essential (primary) hypertension; E11.9 Type 2 diabetes mellitus without complications; Z88.6 Allergy status to analgesic agent; Z88.5 Allergy status to narcotic agent; Z88.8 Allergy status to other drugs, medicaments and biological substances; Z88.1 Allergy status to other antibiotic agents; Z79.899 Other long term (current) drug therapy; Z90.49 Acquired absence of other specified parts of digestive tract
CPT/HCPCS: 36415; 71275; 80053; 82803; 83690; 85025; 85379; 96361; 96374; 99284; A9270; J0780; J7030; Q9967; 0240U; 71045; 71045-26; 81003; 82947; 83880; 84484; 93005; 96375; J1885; J2405; J3490

== ENCOUNTER 2024-03-06 11:23 | Emergency (ER) | payer MEDICARE ==
[2024-03-06] MEDS: Sodium Chloride 0.9% 1,000 ML IV ONE (12:29)
[2024-03-06] MEDS: Ondansetron 4 MG/2 ML SDV IVPUSH ONE (12:29)
[2024-03-06] MEDS: Acetaminophen 500 MG Tab PO ONE (12:31)
[2024-03-06 12:38] LABS: BASOPHILS ABSOLUTE AUTO 0.02 K/uL (0.00-0.20); BASOPHILS PERCENT AUTO 0.3 % (0.0-1.0); EOSINOPHILS ABSOLUTE AUTO 0.21 K/uL (0.00-0.45); EOSINOPHILS PERCENT AUTO 2.8 % (0.0-6.0); HEMATOCRIT 40.2 % (37.0-47.0); HEMOGLOBIN 12.9 g/dL (12.0-16.0); IMMATURE GRAN ABSOLUTE AUTO 0.03 K/uL (0.00-0.05); IMMATURE GRAN PERCENT AUTO 0.4 % (0.0-0.4); LYMPHOCYTES ABSOLUTE AUTO 2.41 K/uL (1.00-4.80); LYMPHOCYTES PERCENT AUTO 31.8 % (24.0-44.0); MEAN CORPUSCULAR HEMOGLOBIN 24.8 pg (28.0-32.0); MEAN CORPUSCULAR HGB CONC 32.1 g/dL (32.0-36.0); MEAN CORPUSCULAR VOLUME 77.2 fL (83.0-99.0); MEAN PLATELET VOLUME 10.1 fL (9.4-12.3); MONOCYTES ABSOLUTE AUTO 0.35 K/uL (0.00-0.80); MONOCYTES PERCENT AUTO 4.6 % (0.0-8.0); NEUTROPHILS ABSOLUTE AUTO 4.57 K/uL (1.80-7.70); NEUTROPHILS PERCENT AUTO 60.1 % (41.0-71.0); PLATELET COUNT,PLT 290 K/uL (150-400); RED BLOOD CELL COUNT 5.21 M/uL (4.10-5.30); WHITE BLOOD CELL COUNT,WBC 7.59 K/uL (3.9-11.3)
[2024-03-06] MEDS: Famotidine 20 MG/2 ML SDV IVPUSH ONE (12:45)
[2024-03-06 12:56] LABS: A/G RATIO 0.8 (0.9-1.6); ALBUMIN 3.5 g/dL (3.4-5.0); BILIRUBIN TOTAL 0.4 mg/dL (0.2-1.0); CALCIUM 9.2 mg/dL (8.5-10.1); CARBON DIOXIDE,CO2 27.3 mmol/L (21.0-32.0); EST CRCL DRUG DOSING (CG) 47.78 mL/min; POTASSIUM,K 4.3 mmol/L (3.5-5.1); PROTEIN TOTAL,TP 8.1 g/dL (6.4-8.2)
[2024-03-06] MEDS: Ketorolac 30 MG/ML SDV IVPUSH ONE (13:54)
[2024-03-06 14:23] VITALS: BP 117/53; PULSE 92
== END 2024-03-06 14:24 | disposition home or self-care (01) ==
LOC: MW.ED 11:23
DX: G43.909 Migraine, unspecified, not intractable, without status migrainosus (principal); I10 Essential (primary) hypertension; E11.9 Type 2 diabetes mellitus without complications; Z88.0 Allergy status to penicillin; Z88.5 Allergy status to narcotic agent; Z88.8 Allergy status to other drugs, medicaments and biological substances; Z79.899 Other long term (current) drug therapy; Z90.49 Acquired absence of other specified parts of digestive tract; Z75.8 Other problems related to medical facilities and other health care
CPT/HCPCS: 36415; 71045; 80053; 85025; 96361; 96374; 96375; 99285; A9270; J1885; J2405; J3490; J7030

== ENCOUNTER 2024-03-19 04:42 | Emergency (ER) | payer MEDICARE ==
[2024-03-19] MEDS: Sodium Chloride 0.9% 1,000 ML IV ONE (05:11)
[2024-03-19] MEDS: Metoclopramide 10 MG/2 ML SDV IVPUSH ONE (05:11)
[2024-03-19 05:17] LABS: BASOPHILS ABSOLUTE AUTO 0.04 K/uL (0.00-0.20); BASOPHILS PERCENT AUTO 0.4 % (0.0-1.0); EOSINOPHILS ABSOLUTE AUTO 0.02 K/uL (0.00-0.45); EOSINOPHILS PERCENT AUTO 0.2 % (0.0-6.0); HEMATOCRIT 40.4 % (37.0-47.0); HEMOGLOBIN 12.7 g/dL (12.0-16.0); IMMATURE GRAN ABSOLUTE AUTO 0.02 K/uL (0.00-0.05); IMMATURE GRAN PERCENT AUTO 0.2 % (0.0-0.4); LYMPHOCYTES ABSOLUTE AUTO 2.06 K/uL (1.00-4.80); LYMPHOCYTES PERCENT AUTO 18.5 % (24.0-44.0); MEAN CORPUSCULAR HEMOGLOBIN 24.3 pg (28.0-32.0); MEAN CORPUSCULAR HGB CONC 31.4 g/dL (32.0-36.0); MEAN CORPUSCULAR VOLUME 77.2 fL (83.0-99.0); MEAN PLATELET VOLUME 10.1 fL (9.4-12.3); MONOCYTES ABSOLUTE AUTO 0.56 K/uL (0.00-0.80); NEUTROPHILS ABSOLUTE AUTO 8.43 K/uL (1.80-7.70); NEUTROPHILS PERCENT AUTO 75.7 % (41.0-71.0); PLATELET COUNT,PLT 254 K/uL (150-400); RED BLOOD CELL COUNT 5.23 M/uL (4.10-5.30); WHITE BLOOD CELL COUNT,WBC 11.13 K/uL (3.9-11.3)
[2024-03-19 05:23] LABS: CALCIUM 9.1 mg/dL (8.5-10.1); CARBON DIOXIDE,CO2 23.8 mmol/L (21.0-32.0); CREATININE 1.2 mg/dL (0.6-1.0); EST CRCL DRUG DOSING (CG) 39.81 mL/min; POTASSIUM,K 4.3 mmol/L (3.5-5.1)
[2024-03-19] MEDS: Magnesium Sulfate (4.06 MEQ/ML) 5 GM/10 ML SDV IV ONE (06:10)
[2024-03-19] MEDS: Magnesium Sulfate/Water Premix 2 GM in Premix Bag 1 BAG IV ONE (06:14)
[2024-03-19] MEDS: Ondansetron 4 MG/2 ML SDV IVPUSH ONE (07:00)
[2024-03-19] MEDS ORDERED: droPERidol 1.25 MG in Sodium Chloride 0.9% 50 ML IV ONE (07:58)
[2024-03-19 08:15] VITALS: BP 129/57; PULSE 103
[2024-03-19] MEDS: droPERidol 5 MG/2 ML SDV IVPUSH ONE (08:16)
== END 2024-03-19 08:40 | disposition home or self-care (01) ==
LOC: MW.ED 04:42
DX: G43.909 Migraine, unspecified, not intractable, without status migrainosus (principal); R11.2 Nausea with vomiting, unspecified; E11.9 Type 2 diabetes mellitus without complications; Z90.49 Acquired absence of other specified parts of digestive tract; Z79.899 Other long term (current) drug therapy; Z88.0 Allergy status to penicillin; Z88.8 Allergy status to other drugs, medicaments and biological substances; Z88.5 Allergy status to narcotic agent; Z88.6 Allergy status to analgesic agent
CPT/HCPCS: 36415; 80048; 85025; 96361; 96365; 96375; 99284; J1790; J2405; J2765; J3475; J7030

== ENCOUNTER 2024-09-19 06:41 | Day surgery (SDC) | payer MEDICARE, OTHER ==
[~2024-09-19 06:41] MED LIST: Sodium Chloride 0.9% 10 ML Syringe FLUSH PRN; Sodium Chloride 0.9% 2.5 ML Syringe FLUSH PRN; Sodium Chloride 0.9% 20 ML SDV IV PRN
[2024-09-19] MEDS: Lactated Ringers 1,000 ML IV SCH (07:19)
[2024-09-19] MEDS ORDERED: dexmedeTOMIDine HCl 200 MCG/2 ML SDV ONE (07:22)
[2024-09-19] MEDS ORDERED: Sodium Chloride 0.9% 20 ML ONE (07:22)
[2024-09-19] MEDS ORDERED: propofoL 500 MG/50 ML 50 ML ONE (08:06)
[2024-09-19] MEDS ORDERED: Lidocaine 2% 5 ML SDV ONE (08:09)
[2024-09-19] MEDS ORDERED: Propofol 200 MG/20 ML SDV ONE (09:20)
[2024-09-19] MEDS: Acetaminophen 500 MG Tab PO ONE (10:15)
[2024-09-19 10:52] VITALS: BP 93/51; PULSE 78
[2024-09-19] MEDS: Acetaminophen 500 MG Tab ONE (11:03)
== END 2024-09-19 10:30 | disposition home or self-care (01) ==
LOC: MW.SDS 06:41
PROVIDERS: ATTEND Surgery
DX: Z12.11 Encounter for screening for malignant neoplasm of colon (principal); D12.5 Benign neoplasm of sigmoid colon; Z86.0100 Personal history of colon polyps, unspecified; I10 Essential (primary) hypertension; E11.9 Type 2 diabetes mellitus without complications; E78.00 Pure hypercholesterolemia, unspecified; Z79.899 Other long term (current) drug therapy; Z88.0 Allergy status to penicillin; Z88.5 Allergy status to narcotic agent; Z88.8 Allergy status to other drugs, medicaments and biological substances
CPT/HCPCS: 45385; 82947; A9270; J2003; J2704; J7120; 00811; J3490